=== PATIENT | male | born 1955 | race Caucasian/White ===

== ENCOUNTER 2018-03-01 15:23 | Inpatient (IN) | payer SELFPAY ==
[2018-03-01 16:44] LABS: Absolute Lymphocytes (CBC) 0.7 K/uL (0.7-4.9); Absolute Monocytes 0.6 K/uL (0.1-1.3); Basophils % 1.9 % (0-1.3); Eosinophils % 3.4 % (0-4.4); Hematocrit 14.3 % (39.6-49.0); Lymphocytes % 19.3 % (15.3-44.8); MCH 18.6 pg (27.0-35.0); MCV 64.3 fL (80-100); MPV 8.7 fL (7.6-11.3); Monocytes % 16.6 % (3.3-12.3); Protime INR 1.36; RBC Red Blood Cell Count 2.22 M/uL (4.33-5.43)
[2018-03-01 17:03] LABS: Albumin 2.5 g/dL (3.4-5.0); Bilirubin Direct 0.3 mg/dL (0-0.2); Bilirubin Total 0.8 mg/dL (0.2-1.0); Potassium 4.1 mmol/L (3.5-5.1); Protein, Total 6.2 g/dL (6.4-8.2)
--- NOTE | 2018-03-01 17:36 | RAD REPORT ---
EXAM DESCRIPTION: Dieter Single View03/01/2018 4:40 pm CLINICAL HISTORY: Shortness of breath COMPARISON: none FINDINGS: A large right pleural effusion is present. Left lung appears clear. The heart is normal si ze IMPRESSION: Large right pleural effusion
--- NOTE | 2018-03-01 17:38 | RAD REPORT ---
EXAM DESCRIPTION: CT - Chest Abdomen Pelvis W Cont - 03/01/2018 5:21 pm CLINICAL HISTORY: Chest and abdominal pain. Shortness of breath COMPARISON: none TECHNIQUE: Computed axial tomography of the chest, abdomen and pelvis was obtained. 100 cc Isovue-30 0 was administered intravenously. Oral contrast was not requested. This limits evaluation of bowel. All CT scans are performed using dose optimization technique as appropriate and may include automated exposure control or mA/KV adjustment according to patient size. FINDINGS: A large right pleural effusion is present with right basilar atelectasis. The left lung is clear. A pericardial effusion is not present. A cirrhotic liver is seen. A small hepatic cyst is present. The portal vein is patent. Recannulizatio n of the umbilical vein is present. Varices are present The spleen is mildly to moderately enlarged measuring 15 centimeters Several tiny left renal calculi are present without hydronephrosis. The right kidney is unremarkable . The pancreas appears normal. A 30 millimeter left adrenal mass is present. A large right inguinal hernia contains nondilated bowel and ascites. A small left inguinal hernia con tains fat. There is no evidence of diverticulitis. Small amount of ascites is present. An umbilical hernia has a neck 27 millimeter Spondylolysis involves L5 IMPRESSION: Large right pleural effusion Cirrhosis Large right inguinal hernia containing a nondilated bowel and ascites 30 millimeter left adrenal mass
[2018-03-01 17:50] LABS: Anisocytosis 1+; Blood Morphology Comment NOTED (NOT SEEN); Hypochromasia 2+; Ovalocytes 1+; Platelet Estimate ADEQ; Polychromasia 1+; Urine White Blood Cell Casts OK
[2018-03-01 17:51] LABS: Rouleau SLIGHT
[2018-03-01] MEDS ORDERED: ONDANSETRON 4 MG/2 ML VIAL IV PRN (17:56)
[2018-03-01] MEDS ORDERED: SODIUM CHLORIDE 0.9% 10ML INJ IV PRN (18:04)
--- NOTE | 2018-03-01 18:14 | P.HP ---
Certification for Inpatient Patient admitted to: Inpatient With expected LOS: >2 Midnights Patient will require the following post-hospital care: None Practitioner: I am a practitioner with admitting privileges, knowledge of patient current condition, hospital course, and medical plan of care. Services: Services provided to patient in accordance with Admission requirements found in Title 42 Section 412.3 of the Code of Federal Regulations Patient History Date of Service: 03/01/18 Primary Care Provider: None Reason for admission: Shortness of breath, edema to the lower extremities History of Present Illness: 62-year-old male presented emergency room with shortness of breath and edema to the lower extremities. Symptoms have been present for over 1 month. Shortness of breath has been getting worse over the last 2 weeks. Patient denies any melena, rectal bleeding, nausea or vomiting. He has been reporting a mild cough. Patient reports some heartburn. He usually is relieved on occasion. In the ER the patient had anasarca. Edema to the lower extremities was impressive. On lab he was found to have a hemoglobin of 4.1, white count 3.5, sodium 134 come potassium 4.1. Creatinine 1.2 with a GFR 61. Direct bilirubin 0.3. AST 58, ALT 60. BNP 128, troponin less than 0.02. Chest x-ray showed a large right pleural effusion per on CT, it showed a large right pleural effusion. Large right-sided inguinal hernia was also noted. Cirrhosis of the liver was noted. A 30 mm left adrenal mass was present. Due to nature the findings the patient was admitted for further evaluation. When I saw the patient ER, he appeared pale. He did not appear in any respiratory distress on a nasal cannula. Patient denies any significant history of past medical problems. 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 It is been many many years since he has use any drugs. He does not smoke, he does not drink. No family history of medical problems. Home medications list reviewed: Yes - Past Medical/Surgical History Diabetic: No Past Medical History: Patient denies medical history Past Surgical History: Patient denies surgical history Psychosocial/ Personal History: Patient is . 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 - Family History Family History: Reviewed- Non-Contributory - Social History Smoking Status: Never smoker Alcohol use: No CD- Drugs: No Caffeine use: Yes Place of Residence: Home Review of Systems General: Weakness, As per HPI Eyes: Unremarkable ENT: Unremarkable Respiratory: Shortness of Breath, As per HPI Cardiovascular: Edema, As per HPI Gastrointestinal: As per HPI (Large hernia) Genitourinary: Unremarkable Musculoskeletal: Pedal edema, As per HPI Integumentary: Unremarkable Neurological: Unremarkable Lymphatics: Unremarkable Physical Examination - Physical Exam General: Alert, In no apparent distress, Oriented x3, Cooperative HEENT: Atraumatic, Mucous membr. moist/pink (Dry mucous membranes), Other ( Patient appears pale) Neck: Supple, No Thyromegaly Respiratory: Diminished (To the right side) Cardiovascular: Regular rate/rhythm, Gallops Gastrointestinal: Normal bowel sounds, Soft and benign, Non-distended, No tenderness, No masses, No rebound, Other (Large right inguinal hernia. Umbilical hernia noted.), Ascites Musculoskeletal: No tenderness, No warmth Integumentary: No erythema, No warmth, No cyanosis, Tenderness/swelling (2+ pitting edema to the lower extremities bilateral) Neurological: Normal speech, Normal strength at 5/5 x4 extr, Normal tone, Normal affect Lymphatics: No axilla or inguinal lymphadenopathy - Studies Laboratory Data (last 24 hrs) 03/01/18 16:10: PT 16.1 H, INR 1.36 03/01/18 16:10: WBC 3.5 L, Hgb 4.1 L*, Hct 14.3 L*, Plt Count 179 03/01/18 16:10: Sodium 134 L, Potassium 4.1, BUN 16, Creatinine 1.20, Glucose 112 H, Magnesium 2.0, Total Bilirubin 0.8, AST 58 H, ALT 60, Alkaline Phosphatase 94 Assessment and Plan - Problems (Diagnosis) (1) Anemia Current Visit: Yes Status: Acute Plan: Patient with severe anemia. Will recheck hemoglobin. If still abnormal will transfuse 2 units of blood and monitor closely. Patient will need Lasix. Will check iron and B12 studies. Will check guaiac stool. GI consulted to further evaluate. Will place on Protonix. Qualifiers: Anemia type: other cause (2) Cirrhosis Current Visit: Yes Status: Acute Plan: This appears to be a new diagnosis for the patient. Will send for hepatitis panel and HIV. Will start Lasix IV. Will monitor closely. GI consulted. Await further recommendations. Qualifiers: Hepatic cirrhosis type: unspecified hepatic cirrhosis Ascites presence: with ascites Qualified Code(s): K74.60 - Unspecified cirrhosis of liver; R18.8 - Other ascites (3) Shortness of breath Current Visit: Yes Status: Acute Plan: Patient with large right-sided pleural effusion. This is likely related to underlying CHF. Patient with cirrhosis. Will continue with diuresis. Will check echocardiogram. Cardiology consulted. (4) Pleural effusion Current Visit: Yes Status: Acute Plan: Will check echocardiogram. This may be related to his cirrhosis and possible underlying CHF. Spoke with pulmonology. No intervention is recommended at this time. (5) CHF (congestive heart failure) Current Visit: Yes Status: Suspected Plan: Will check echocardiogram. Will continue with diuresis. Qualifiers: Heart failure type: systolic Heart failure chronicity: acute on chronic Qualified Code(s): I50.23 - Acute on chronic systolic (congestive) heart failure (6) Adrenal mass Current Visit: Yes Status: Acute Plan: Left 30 mm adrenal mass. This will need to be further assess. Will discuss with GI. (7) Inguinal hernia Current Visit: Yes Status: Chronic Plan: Large right-sided inguinal hernia. No heavy lifting, pushing or pulling. This can be addressed by surgery as an outpatient. Qualifiers: Obstruction and gangrene presence: without obstruction or gangrene Laterality: unilateral (8) Ascites Current Visit: Yes Status: Acute Plan: Likely from his cirrhosis. Will need to evaluate for CHF. Qualifiers: Ascites type: other type Qualified Code(s): R18.8 - Other ascites Discharge Plan: Home Plan to discharge in: Greater than 2 days - Advance Directives Does patient have a Living Will: No Does patient have a Durable POA for Healthcare: No - Code Status/Comfort Care Code Status Assessed: Yes Time Spent Managing Pts Care (In Minutes): 55
--- NOTE | 2018-03-01 18:17 | EDPHYS ---
Physician Documentation [facility] Name: Rich Montana Age: 62 yrs Sex: Male : 1955 Arrival Date: 03/01/2018 Time: 15:28 Bed 5 Private MD: Eusebio Kimble ED Physician Jose Rob HPI: 03/01 16:52 This 62 yrs old Male presents to ER via Ambulatory with complaints of Leg gs Swelling, Shortness Of Breath, Cough. 16:52 The patient has shortness of breath at rest, during heavy activity. gs 18:18 Onset: The symptoms/episode began/occurred 2 week(s) ago. Duration: The symptoms are gs continuous. The patient's shortness of breath is aggravated by exertion, supine position. Associated signs and symptoms: Pertinent negatives: chest pain, swelling extremities. Severity of symptoms: At their worst the symptoms were moderate. The patient has not experienced similar symptoms in the past. The patient has not recently seen a physician. Historical: - Allergies: 15:33 acromycin; aj - Home Meds: 15:33 None [Active]; aj - PMHx: 15:33 None; aj - PSHx: 15:33 None; aj - Immunization history:: Adult Immunizations up to date. - Social history:: Smoking status: Patient/guardian denies using tobacco. - Ebola Screening: : Patient negative for fever greater than or equal to 101.5 degrees Fahrenheit, and additional compatible Ebola Virus Disease symptoms Patient denies exposure to infectious person Patient denies travel to an Ebola-affected area in the 21 days before illness onset No symptoms or risks identified at this time. ROS: 18:18 All other systems are negative. gs Exam: 18:18 Head/Face: Normocephalic, atraumatic. Eyes: Pupils equal round and reactive to light, gs extra-ocular motions intact. Lids and lashes normal. Conjunctiva and sclera are non-icteric and not injected. Cornea within normal limits. Periorbital areas with no swelling, redness, or edema. ENT: Nares patent. No nasal discharge, no septal abnormalities noted. Tympanic membranes are normal and external auditory canals are clear. Oropharynx with no redness, swelling, or masses, exudates, or evidence of obstruction, uvula midline. Mucous membranes moist. Neck: Trachea midline, no thyromegaly or masses palpated, and no cervical lymphadenopathy. Supple, full range of motion without nuchal rigidity, or vertebral point tenderness. No Meningismus. Chest/axilla: Normal chest wall appearance and motion. Nontender with no deformity. No lesions are appreciated. Cardiovascular: Regular rate and rhythm with a normal S1 and S2. No gallops, murmurs, or rubs. Normal PMI, no JVD. No pulse deficits. Back: No spinal tenderness. No costovertebral tenderness. Full range of motion. Skin: Warm, dry with normal turgor. Normal color with no rashes, no lesions, and no evidence of cellulitis. Neuro: Awake and alert, GCS 15, oriented to person, place, time, and situation. Cranial nerves II-XII grossly intact. Motor strength 5/5 in all extremities. Sensory grossly intact. Cerebellar exam normal. Normal gait. 18:18 Constitutional: The patient appears alert, awake, pale. 18:18 Respiratory: the patient does not display signs of respiratory distress, Respirations: normal, Breath sounds: decreased breath sounds, that are severe, are heard in the right posterior upper lobe, right posterior middle lobe and right posterior lower lobe. 18:18 Abdomen/GI: Palpation: abdomen is soft and non-tender. 18:18 Musculoskeletal/extremity: ROM: no acute changes, Circulation is intact in all extremities. Edema, 3+ to the left lower thigh, left knee, left midcalf, left ankle, right lower thigh, right knee, right midcalf and right ankle is noted, Sensation intact. 18:35 ECG was reviewed by the Attending Physician. Vital Signs: 15:33 BP 142 / 64; Pulse 116; Resp 24; Temp 99.6; Pulse Ox 98% on R/A; Weight 78.47 kg; aj Height 5 ft. 8 in. (172.72 cm); 15:55 BP 129 / 63; Pulse 96; Resp 20; Pulse Ox 99% ; jp3 18:00 BP 125 / 68; Pulse 87 MON; Resp 19; Temp 99.6; Pulse Ox 98% on R/A; sg 19:00 BP 121 / 67; Pulse 99; Resp 16; Pulse Ox 99% on R/A; rv 19:30 BP 127 / 71; Pulse 96; Resp 16; Pulse Ox 99% on R/A; rv 20:40 BP 120 / 64; Pulse 92; Resp 28; Pulse Ox 97% on R/A; rv 21:11 BP 125 / 73; Pulse 92; Resp 20; Pulse Ox 97% on R/A; mt 15:33 Body Mass Index 26.30 (78.47 kg, 172.72 cm) aj 18:00 Sinus Rhythm sg MDM: 16:21 Patient medically screened. 18:18 Differential diagnosis: Myocardial Infarction pneumonia, pleural effusion, malignancy, gs anemia. Data reviewed: vital signs, nurses notes. 03/01 16:27 Order name: Basic Metabolic Panel; Complete Time: 17:41 03/01 16:27 Order name: CBC with Diff; Complete Time: 18:16 03/01 16:27 Order name: LFT's; Complete Time: 17:41 03/01 16:27 Order name: Magnesium; Complete Time: 17:41 03/01 16:27 Order name: NT PRO-BNP; Complete Time: 17:41 03/01 16:27 Order name: PT-INR; Complete Time: 17:41 03/01 16:27 Order name: Troponin (emerg Dept Use Only); Complete Time: 17:41 03/01 16:48 Order name: Type And Screen 03/01 17:50 Order name: CBC Smear Scan; Complete Time: 18:16 [facility] 03/01 17:52 Order name: Hemoglobin 03/01 17:54 Order name: Bb Add On bd 03/01 17:58 Order name: Packed RBC Leukored -1 [facility] 03/01 18:03 Order name: Vitamin B12 Level [facility] 03/01 18:03 Order name: Ferritin [facility] 03/01 18:04 Order name: Comprehensive Metabolic Panel [facility] 03/01 18:04 Order name: Comprehensive Metabolic Panel [facility] 03/01 18:04 Order name: Comprehensive Metabolic Panel [facility] 03/01 18:04 Order name: Comprehensive Metabolic Panel [facility] 03/01 18:04 Order name: Comprehensive Metabolic Panel [facility] 03/01 18:04 Order name: Comprehensive Metabolic Panel [facility] 03/01 18:04 Order name: Lipid Profile [facility] 03/01 18:04 Order name: Lipid Profile [facility] 03/01 18:04 Order name: Magnesium [facility] 03/01 18:04 Order name: Magnesium [facility] 03/01 18:04 Order name: Magnesium [facility] 03/01 18:04 Order name: Magnesium [facility] 03/01 18:04 Order name: Magnesium [facility] 03/01 18:04 Order name: Magnesium [facility] 03/01 18:04 Order name: T4 Free [facility] 03/01 16:27 Order name: XRAY Chest (1 view); Complete Time: 17:41 gs 03/01 16:27 Order name: EKG; Complete Time: 16:28 03/01 16:27 Order name: Cardiac monitoring; Complete Time: 16:30 03/01 16:27 Order name: EKG - Nurse/Tech; Complete Time: 16:30 03/01 16:27 Order name: IV Saline Lock; Complete Time: 16:30 03/01 16:27 Order name: Labs collected and sent; Complete Time: 16:30 03/01 16:27 Order name: O2 Per Protocol; Complete Time: 16:30 03/01 16:27 Order name: O2 Sat Monitoring; Complete Time: 16:30 03/01 16:55 Order name: CT Chest, Abdomen, Pelvis - W/Contrast; Complete Time: 17:42 03/01 18:04 Order name: T4 Free [facility] 03/01 18:04 Order name: CONS Physician Consult [facility] 03/01 18:04 Order name: CONS Physician Consult [facility] 03/01 18:04 Order name: Heart Healthy [facility] 03/01 18:04 Order name: Echo with Doppler [facility] 03/01 18:04 Order name: Hepatitis Panel,Acute [facility] 03/01 18:04 Order name: Transferrin Sat/Iron Binding [facility] 03/01 18:04 Order name: HIV AG/AB SCREEN [facility] 03/01 18:04 Order name: Urinalysis [facility] 03/01 18:04 Order name: CBC with Automated Diff [facility] 03/01 18:04 Order name: CBC with Automated Diff [facility] 03/01 18:04 Order name: CBC with Automated Diff [facility] 03/01 18:04 Order name: CBC with Automated Diff [facility] 03/01 18:04 Order name: CBC with Automated Diff [facility] 03/01 18:04 Order name: CBC with Automated Diff [facility] 03/01 18:04 Order name: Thyroid Stimulating Hormone [facility] 03/01 18:04 Order name: Thyroid Stimulating Hormone [facility] 03/01 18:49 Order name: ABO/RH no charge; Complete Time: 20:16 [facility] 03/01 19:37 Order name: Antibody Screen [facility] 03/01 21:55 Order name: Urine Dipstick--Ancillary (enter results) eb EC:35 Rate is 103 beats/min. Rhythm is regular. ME interval is normal. QRS interval is gs normal. QT interval is normal. T waves are Flattened. Clinical impression: NSR w/ Non-specific ST/T Changes. Interpreted by me. Administered Medications: No medications were administered Point of Care Testing: Blood Glucose: 15:55 Blood Glucose: 140 mg/dL; jp3 Ranges: Critical Glucose Levels:Adult <50 mg/dl or >400 mg/dl <40 mg/dl or >180 mg/dl Disposition: 18:18 Critical Care:. gs Disposition: 03/01/18 18:16 Hospitalization ordered by Omar Kern for Inpatient Admission. Preliminary diagnosis is Anemia in chronic diseases classified elsewhere. - Bed requested for Telemetry/MedSurg (Inpatient). - Status is Inpatient Admission. rv - Condition is Stable. - Problem is new. - Symptoms are unchanged. UTI on Admission? No Critical care time excluding procedures: 18:18 Critical care time: Bedside Care: 10 minutes, Consultation: 10 minutes, Family gs Intervention: 10 minutes. Total time: 30 minutes Signatures: Dispatcher [employer] Dora Martinez, Jose Bansal RN, MD MD gs Botello, Elizabeth eb Vicente, Ronaldo, RN RN rv Corrections: (The following items were deleted from the chart) 16:59 16:45 Stone Protocol+CT.RAD.BRZ ordered. [facility] EDFL 18:04 18:03 Iron ordered. [facility] 19:20 18:16 Hospitalization Ordered by Omar Kern DO for Inpatient Admission. Preliminary eb diagnosis is Anemia in chronic diseases classified elsewhere. Bed requested for Telemetry/MedSurg (Inpatient). Status is Inpatient Admission. Condition is Stable. Problem is new. Symptoms are unchanged. UTI on Admission? No. gs 22:17 19:20 03/01/2018 18:16 Hospitalization Ordered by Omar Kern DO for Inpatient rv Admission. Preliminary diagnosis is Anemia in chronic diseases classified elsewhere. Bed requested for Telemetry/MedSurg (Inpatient). Status is Inpatient Admission. Condition is Stable. Problem is new. Symptoms are unchanged. UTI on Admission? No. eb
--- NOTE | 2018-03-01 18:17 | ER ---
Nurse's Notes [facility] Name: Rich Montana Age: 62 yrs Sex: Male : 1955 Arrival Date: 03/01/2018 Time: 15:28 Bed 5 Private MD: Eusebio Kimble Diagnosis: Anemia in chronic diseases classified elsewhere Presentation: 03/01 15:31 Presenting complaint: Patient states: SOB with bilateral leg swelling for 1.5 weeks. aj Transition of care: patient was not received from another setting of care. Onset of symptoms was February 19, 2018. Risk Assessment: Do you want to hurt yourself or someone else? Patient reports no desire to harm self or others. Initial Sepsis Screen: Does the patient meet any 2 criteria? HR > 90 bpm. No. Patient's initial sepsis screen is negative. Does the patient have a suspected source of infection? No. Patient's initial sepsis screen is negative. Care prior to arrival: None. 15:31 Method Of Arrival: Ambulatory aj 15:31 Acuity: SIGIFREDO 3 aj Triage Assessment: 15:33 General: Appears in no apparent distress. comfortable, Behavior is calm, cooperative, aj appropriate for age. Pain: Denies pain. Neuro: Level of Consciousness is awake, alert, obeys commands, Oriented to person, place, time, situation, Appropriate for age. Cardiovascular: Patient's skin is warm and dry. Edema is 3+ to left midcalf, left ankle, left foot, right midcalf, right ankle and right foot. Respiratory: Reports cough that is Airway is patent Respiratory effort is even, unlabored, Respiratory pattern is regular, symmetrical, Onset: The symptoms/episode began/occurred gradually, the patient has mild shortness of breath. Derm: Skin Skin is pale. Historical: - Allergies: 15:33 acromycin; aj - Home Meds: 15:33 None [Active]; aj - PMHx: 15:33 None; aj - PSHx: 15:33 None; aj - Immunization history:: Adult Immunizations up to date. - Social history:: Smoking status: Patient/guardian denies using tobacco. - Ebola Screening: : Patient negative for fever greater than or equal to 101.5 degrees Fahrenheit, and additional compatible Ebola Virus Disease symptoms Patient denies exposure to infectious person Patient denies travel to an Ebola-affected area in the 21 days before illness onset No symptoms or risks identified at this time. Screenin:00 Abuse screen: Denies threats or abuse. Denies injuries from another. Nutritional sg screening: No deficits noted. Tuberculosis screening: No symptoms or risk factors identified. Never had TB. Fall Risk None identified. Assessment: 16:00 General: Appears in no apparent distress. comfortable, well groomed, well developed, sg well nourished, Behavior is calm, cooperative, appropriate for age. Pain: Denies pain. Neuro: Level of Consciousness is awake, alert, obeys commands, Oriented to person, place, time, situation, Supervisory Cbp Officer are equal bilaterally Moves all extremities. Full function Gait is steady, Speech is normal, Facial symmetry appears normal. Cardiovascular: Reports shortness of breath, Denies chest pain, diaphoresis, fatigue, lightheadedness, nausea, palpitations, syncope, vomiting, Heart tones S1 S2 present Capillary refill is brisk in bilateral fingers Patient's skin is warm and dry. Edema is 3+ to left ankle, left foot, left toes, right ankle, right foot and right toes Chest pain is denied. Respiratory: Reports shortness of breath at rest Airway is patent Respiratory effort is even, unlabored, Respiratory pattern is regular, symmetrical, Breath sounds are clear bilaterally. GI: No signs and/or symptoms were reported involving the gastrointestinal system. : No signs and/or symptoms were reported regarding the genitourinary system. EENT: No signs and/or symptoms were reported regarding the EENT system. Derm: Skin is intact, is healthy with good turgor, Skin is dry, Skin is pale, Skin temperature is cool. Musculoskeletal: No signs and/or symptoms reported regarding the musculoskeletal system. 19:22 Reassessment: Patient appears in no apparent distress at this time. Patient is alert, rv oriented x 3, equal unlabored respirations, skin warm/dry/pink. received patient from Seth DUNN. patient is lying on bed. noted to be pale. no complaints of pain. conscious and coherent. blood not yet processed as of this moment. 19:28 Reassessment: consent for blood transfusion signed by the patient. consent attached to rv chart. 20:40 Reassessment: Patient appears in no apparent distress at this time. Patient is alert, rv oriented x 3, equal unlabored respirations, skin warm/dry/pink. awaiting blood unit for transfusion. 20:50 Reassessment: Patient appears in no apparent distress at this time. Patient is alert, rv oriented x 3, equal unlabored respirations, skin warm/dry/pink. blood transfusion started. 21:51 Reassessment: Patient appears in no apparent distress at this time. Patient is alert, rv oriented x 3, equal unlabored respirations, skin warm/dry/pink. patient on the way to the floor. blood interrupted, 175ml left on the bag. 22:14 Cardiovascular: Rhythm is regular. rv Vital Signs: 15:33 BP 142 / 64; Pulse 116; Resp 24; Temp 99.6; Pulse Ox 98% on R/A; Weight 78.47 kg; aj Height 5 ft. 8 in. (172.72 cm); 15:55 BP 129 / 63; Pulse 96; Resp 20; Pulse Ox 99% ; jp3 18:00 BP 125 / 68; Pulse 87 MON; Resp 19; Temp 99.6; Pulse Ox 98% on R/A; sg 19:00 BP 121 / 67; Pulse 99; Resp 16; Pulse Ox 99% on R/A; rv 19:30 BP 127 / 71; Pulse 96; Resp 16; Pulse Ox 99% on R/A; rv 20:40 BP 120 / 64; Pulse 92; Resp 28; Pulse Ox 97% on R/A; rv 21:11 BP 125 / 73; Pulse 92; Resp 20; Pulse Ox 97% on R/A; mt 15:33 Body Mass Index 26.30 (78.47 kg, 172.72 cm) aj 18:00 Sinus Rhythm ED Course: 15:28 Patient arrived in ED. sb2 15:29 Eusebio Kimble MD is Private Physician. sb2 15:33 Triage completed. aj 15:33 Arm band placed on left wrist. Patient placed in an exam room. aj 15:38 Jose Rob MD is Attending Physician. gs 15:45 Inserted saline lock: 22 gauge in right antecubital area, using aseptic technique. jp3 Blood collected. 15:49 Seth Michele, SHAUN is Primary Nurse. sg 16:04 EKG done, by technical project lead. reviewed by Jose Rob MD. sm3 16:36 X-ray completed. Portable x-ray completed in exam room. Patient tolerated procedure kc2 well. 16:39 XRAY Chest (1 view) In Process Unspecified. EDMS 17:[address] vm2 17:21 CT Chest, Abdomen, Pelvis - W/Contrast In Process Unspecified. EDMS 18:16 Omar Kern DO is Hospitalizing Provider. 19:12 Primary Nurse role handed off by Seth Michele, RN bp 19:12 Ricco Waters, RN is Primary Nurse. bp 22:13 No provider procedures requiring assistance completed. Patient admitted, IV remains in rv place. intact. 22:15 Patient has correct armband on for positive identification. Placed in gown. Bed in low rv position. Call light in reach. Side rails up X 1. Adult w/ patient. counter server on. Pulse ox on. NIBP on. Administered Medications: No medications were administered Point of Care Testing: Blood Glucose: 15:55 Blood Glucose: 140 mg/dL; jp3 Ranges: Outcome: 18:16 Decision to Hospitalize by Provider. gs 22:14 Admitted to Med/surg accompanied by nurse, via stretcher, room 205, with chart, Report rv called to [facility] 22:15 Condition: stable rv 22:15 Instructed on the need for admit. 22:17 Patient left the ED. rv Signatures: Dispatcher [employer] EDMS Seth Michele, RN SHAUN Dora Reeves RN RN Jackie Meyers 2 Aleshia Mathur 2 Krystal Krishnamurthy mt, Gregory, MD MD Ricco Waters, RN RN bp Ame Calderón 2 Natasha Oviedo 3 Andres Linton RN RN rv Ramana Salinas jp3 Corrections: (The following items were deleted from the chart) 19:56 19:00 BP 127 / 71; Pulse 96bpm; Resp 16bpm; Pulse Ox 99% RA; rv rv
[2018-03-01] MEDS ORDERED: NA CHLORIDE 0.9% 100 ML IV ONE (19:53)
[2018-03-01 20:28] LABS: Ferritin 7.8 ng/mL (26-388); Transferrin 326 mg/dL (200-360)
--- NOTE | 2018-03-01 20:53 | EKG ---
Test Date: 2018-03-01 Test Time: 15:46:26 Shuttle Driver: RHETT MEASUREMENT RESULTS: Intervals: Rate: 103 DE: 124 QRSD: 78 QT: 334 QTc: 437 Union: P: 66 DE: 124 QRS: 33 T: 1 INTERPRETIVE STATEMENTS: Sinus tachycardia Otherwise normal ECG No previous ECG available for comparison Electronically Signed On 03-01-18 20:52:50 CDT by Joe Smith
[2018-03-01 22:46] VITALS: BMI 27.9
[2018-03-02] MEDS ORDERED: NA CHLORIDE 0.9% 250 ML ONE ×3 (03:13→21:59)
[2018-03-02 06:01] LABS: Absolute Lymphocytes (CBC) 0.6 K/uL (0.7-4.9); Absolute Monocytes 0.6 K/uL (0.1-1.3); Absolute Neutrophil 1.7 K/uL (1.8-8.0); Basophils % 1.6 % (0-1.3); Eosinophils % 6.9 % (0-4.4); Lymphocytes % 20.5 % (15.3-44.8); MCH 21.7 pg (27.0-35.0); MCV 70.6 fL (80-100); MPV 8.3 fL (7.6-11.3); Monocytes % 17.9 % (3.3-12.3); RBC Red Blood Cell Count 2.45 M/uL (4.33-5.43)
[2018-03-02 06:08] LABS: Hematocrit 17.3 % (39.6-49.0)
[2018-03-02 06:42] LABS: Anisocytosis 3+; Blood Morphology Comment NOTED (NOT SEEN); Hypochromasia 1+; Platelet Estimate DECR; Urine White Blood Cell Casts OK
[2018-03-02 07:30] LABS: Albumin 2.4 g/dL (3.4-5.0); Bilirubin Total 1.3 mg/dL (0.2-1.0); Magnesium 1.9 mg/dL (1.8-2.4); Potassium 4.3 mmol/L (3.5-5.1); Protein, Total 5.7 g/dL (6.4-8.2); Thyroid Stimulating Hormone 0.7 uIU/mL (0.36-3.74)
[2018-03-02] MEDS: PANTOPRAZOLE 40 MG INJ IVP SCH (09:42)
[2018-03-02] MEDS: SPIRONOLACTONE 25 MG TABLET PO SCH (09:42)
[2018-03-02] MEDS: FUROSEMIDE 40 MG/4 ML VIAL IV SCH ×2 (09:42→17:58)
[2018-03-02] MEDS ORDERED: FUROSEMIDE 20 MG/ 2ML VIAL IV ONE (09:47)
--- NOTE | 2018-03-02 10:59 | CON ---
Date of Consultation: 03/02/[address] Kern' service on 03/01/2018. The patient was seen on 03/02/2018. Reason For Consultation: Shortness of breath and anasarca. History Of Present Illness: Mr. Montana is a 62-year-old white male without any past medical history. He does not take any medications. He came in with 1-month worth of shortness of breath, was found to have a hemoglobin of 4.1. Chest x-ray showed a large pleural effusion. CT of the abdomen showed a large pleural effusion, a 30-mm adrenal mass, ascites, and cirrhosis. No chest pain reported. No pa lpitation. No syncope. Pedal edema and abdominal girth increase were reported. Allergies: INCLUDE VANCOMYCIN. Review of Systems: Negative. Social History: Negative. Family History: Noncontributory. Medications: None. Physical Examination: Vital Signs: Stable. Afebrile. HEENT: Negative. Neck: Supple without any lymphadenopathy, JVD, thyromegaly, or bruit. Chest: Revealed decreased breath sounds bilaterally. Cardiac: Revealed a regular rhythm and rate. No murmurs, gallops, or rubs. Abdomen: Obese. Extremities: Revealed no clubbing, cyanosis. He had 2 to 3+ edema with anasarca. Diagnostic Data: As stated above. Impression And Plan: Mr. Miguels shortness of breath is obviously secondary to multiple factors inclu ding severe anemia, pleural effusion, anasarca, and diffuse edema. I doubt very seriously we are charlotte ling with congestive heart failure. I think this may be a problem related to his liver. He adrenal mass needs to be worked up. He has an echocardiogram pending. He needs Gastroenterology workup exte nsively. We will see what the echocardiogram shows prior to making final decision. He needs to be t ransfused and gentle diuresis may be indicated. We will follow along. ESAU/MICKY Voice ID: [id number] Report ID: [id number]
--- NOTE | 2018-03-02 12:48 | P.PN ---
Subjective Date of Service: 03/02/18 Primary Care Provider: None Chief Complaint: Shortness of breath, edema to the lower extremities Subjective: Doing well (Patient feels slightly better.) Physical Examination - Vital Signs Temperature: 98.7 F Blood Pressure: 126/63 Pulse: 90 Respirations: 18 Pulse Ox (%): 93 - Physical Exam General: Alert, In no apparent distress, Oriented x3, Cooperative HEENT: Atraumatic Neck: Supple Respiratory: Diminished (To the right side) Cardiovascular: Normal pulses, Regular rate/rhythm Gastrointestinal: Normal bowel sounds, Soft and benign, Non-distended, No tenderness, No masses, No rebound, Ascites Musculoskeletal: No erythema, No tenderness, No warmth Integumentary: Tenderness/swelling (Edema to the lower extremities unchanged. Patient last pale today.) Neurological: Normal speech, Normal strength at 5/5 x4 extr, Normal tone, Normal affect - Studies Laboratory Data (last 24 hrs) 03/01/18 17:52: Hgb Cancelled 03/01/18 16:10: PT 16.1 H, INR 1.36 03/01/18 16:10: WBC 3.5 L, Hgb 4.1 L*, Hct 14.3 L*, Plt Count 179 03/01/18 16:10: Sodium 134 L, Potassium 4.1, BUN 16, Creatinine 1.20, Glucose 112 H, Magnesium 2.0, Total Bilirubin 0.8, AST 58 H, ALT 60, Alkaline Phosphatase 94 Medications List Reviewed: Yes Assessment & Plan - Problems (Diagnosis) (1) Anemia Onset Date: 03/02/18 Current Visit: Yes Status: Acute Plan: Patient with severe anemia. Patient has received 2 units of blood. Slight improvement noted. Will transfuse 2 more units. Will provide Lasix after each unit. Iron deficiency noted. Will check guaiac stool. GI consulted. Will continue with PPI. Patient may require EGD evaluation. Qualifiers: Anemia type: other cause (2) Cirrhosis Onset Date: 03/02/18 Current Visit: Yes Status: Acute Plan: This appears to be a new diagnosis for the patient. Await hepatitis panel and HIV. Will continue with diuresis. GI consulted. Will discuss with GI further for further recommendation. Patient will likely need biopsy of the liver Qualifiers: Hepatic cirrhosis type: unspecified hepatic cirrhosis Ascites presence: with ascites Qualified Code(s): K74.60 - Unspecified cirrhosis of liver; R18.8 - Other ascites (3) Shortness of breath Onset Date: 03/02/18 Current Visit: Yes Status: Acute Plan: Patient with large right-sided pleural effusion. Likely related to cirrhosis. Will continue with diuresis. Will check echocardiogram. Will recheck x-ray. Case discussed with pulmonology. No intervention needed at this time. (4) Pleural effusion Onset Date: 03/02/18 Current Visit: Yes Status: Acute Plan: Continue monitor closely. Continue as above. No intervention recommended by pulmonology at this time. (5) CHF (congestive heart failure) Onset Date: 03/02/18 Current Visit: Yes Status: Suspected Plan: Will check echocardiogram. Will continue with diuresis. Cardiology consulted. Qualifiers: Heart failure type: systolic Heart failure chronicity: acute on chronic Qualified Code(s): I50.23 - Acute on chronic systolic (congestive) heart failure (6) Adrenal mass Onset Date: 03/02/18 Current Visit: Yes Status: Acute Plan: Left 30 mm adrenal mass. This will likely need biopsy. Will discuss with radiology for possible options. (7) Inguinal hernia Onset Date: 03/02/18 Current Visit: Yes Status: Chronic Plan: Large right-sided inguinal hernia. No heavy lifting, pushing or pulling. This can be addressed by surgery as an outpatient. Qualifiers: Obstruction and gangrene presence: without obstruction or gangrene Laterality: unilateral (8) Ascites Onset Date: 03/02/18 Current Visit: Yes Status: Acute Plan: Likely from his cirrhosis. Will need to evaluate for CHF. Qualifiers: Ascites type: other type Qualified Code(s): R18.8 - Other ascites Discharge Plan: Home Plan to discharge in: Greater than 2 days Time Spent Managing Pts Care (In Minutes): 55
[2018-03-02] MEDS: ACETAMINOPHEN 500 MG TAB PO PRN ×2 (13:39→15:03)
--- NOTE | 2018-03-02 15:56 | ECHO ---
HEIGHT: 5 ft 8 in WEIGHT: 183 lb 11.2 oz DATE OF STUDY: 03/02/[address]: Omar Kern DO 2-DIMENSIONAL: YES M.MODE: YES DOPPLER: YES COLOR FLOW: YES TDS: NO PORTABLE: NO DEFINITY: NO BUBBLE STUDY: NO DIAGNOSIS: DYSPNEA, EVALUATE FOR CONGESTIVE HEART FAILURE CARDIAC HISTORY: CATHERIZATION: NO SURGERY: NO PROSTHETIC VALVE: NO PACEMAKER: NO MEASUREMENTS (cm) DIASTOLIC (NORMALS) SYSTOLIC (NORMALS) IVSd 1.1 (0.6-1.2) LA Diam 4.4 (1.9-4.0) LVEF 81% LVIDd 3.4 (3.5-5.7) LVIDs 1.7 (2.0-3.5) %FS 49% LVPWd 0.9 (0.6-1.2) Ao Diam 2.9 (2.0-3.7) 2 DIMENSIONAL ASSESSMENT: RIGHT ATRIUM: NORMAL LEFT ATRIUM: DILATED RIGHT VENTRICLE: NORMAL LEFT VENTRICLE: NORMAL TRICUSPID VALVE: NORMAL MITRAL VALVE: NORMAL PULMONIC VALVE: NORMAL AORTIC VALVE: NORMAL PERICARDIAL EFFUSION: NONE AORTIC ROOT: NORMAL LEFT VENTRICULAR WALL MOTION: NORMAL DOPPLER/COLOR FLOW: MILD MITRAL REGURGITATION. COMMENTS: MILD MITRAL REGURGITATION. NORMAL LEFT VENTRICULAR SIZE AND FUNCTION. NO WALL MOTION ABNORMALITY. MILD LEFT ATRIAL ENLARGEMENT. TECHNOLOGIST: Reza FIELDS
[2018-03-02] MEDS: BENZONATATE 100 MG CAP PO PRN (18:10)
[2018-03-02] MEDS: ENOXAPARIN 40 MG/0.4 ML SQ SCH (23:16)
[2018-03-03] LABS: Urine Appearance CLEAR; Urine Bilirubin NEGATIVE (NEG); Urine Blood NEGATIVE (NEG); Urine Color YELLOW; Urine Glucose NEGATIVE (NEG); Urine Protein NEGATIVE (NEG)
[2018-03-03 00:08] LABS: Urine Microscopic Reflex NO UMIC
[2018-03-03 04:43] LABS: Absolute Lymphocytes (CBC) 0.6 K/uL (0.7-4.9); Absolute Monocytes 0.6 K/uL (0.1-1.3); Absolute Neutrophil 1.5 K/uL (1.8-8.0); Basophils % 1.1 % (0-1.3); Eosinophils % 6.9 % (0-4.4); Hematocrit 21.3 % (39.6-49.0); Lymphocytes % 21.5 % (15.3-44.8); MCV 74.9 fL (80-100); MPV 8.7 fL (7.6-11.3); RBC Red Blood Cell Count 2.84 M/uL (4.33-5.43)
[2018-03-03 05:07] LABS: Albumin 2.3 g/dL (3.4-5.0); Bilirubin Total 1.1 mg/dL (0.2-1.0); Potassium 4.1 mmol/L (3.5-5.1); Protein, Total 5.7 g/dL (6.4-8.2)
--- NOTE | 2018-03-03 08:34 | RAD REPORT ---
EXAM DESCRIPTION: RADChest Lateral Decubitus03/03/2018 8:11 am CLINICAL HISTORY: Shortness of breath FINDINGS: Decubiti films demonstrate a large partially layering right pleural effusion.
--- NOTE | 2018-03-03 08:35 | RAD REPORT ---
EXAM DESCRIPTION: Dieter Virea And Chloe (2 Views)03/03/2018 8:06 am CLINICAL HISTORY: Shortness of breath COMPARISON: March 01 FINDINGS: A large right pleural effusion is present with right basilar atelectasis. Left lung appears clear. The heart is normal size IMPRESSION: Large right pleural effusion without significant change
--- NOTE | 2018-03-03 08:44 | P.PN ---
Subjective Date of Service: 03/03/18 Primary Care Provider: None Chief Complaint: Shortness of breath, edema to the lower extremities Subjective: Improving Physical Examination - Vital Signs Temperature: 97.9 F Blood Pressure: 114/62 Pulse: 83 Respirations: 20 Pulse Ox (%): 95 - Physical Exam General: Alert, In no apparent distress, Cooperative HEENT: Atraumatic Neck: Supple Respiratory: Diminished (To the right side) Cardiovascular: Normal pulses, Regular rate/rhythm Gastrointestinal: Normal bowel sounds, Soft and benign, Non-distended, No tenderness, No masses, No rebound, No guarding, Ascites (Mild ascites) Integumentary: No erythema, No warmth, No cyanosis, Tenderness/swelling (Edema to the lower extremities improved ) Neurological: Normal speech, Normal strength at 5/5 x4 extr, Normal tone, Normal affect Lymphatics: No axilla or inguinal lymphadenopathy - Studies Medications List Reviewed: Yes Assessment & Plan - Problems (Diagnosis) (1) Anemia Onset Date: 03/02/18 Current Visit: Yes Status: Acute Plan: Patient with severe anemia. Patient has received a total of 4 units. Hemoglobin still low. Need to get hemoglobin above 7.0 as the patient will require a EGD. Case discussed at length with GI. Patient will receive 1 more unit of blood. Will continue to monitor closely. Patient needs to be evaluated for esophagitis/gastritis. GI suspects cirrhosis related to undiagnosed hepatitis-C. Hepatitis panel pending. Before EGD done patient may require paracentesis versus thoracentesis. Case discussed with pulmonology. Options address with patient. After reviewing x-ray, large pleural effusion still noted. Pulmonology suggest that the patient may require chest tube due to the large pleural effusion. Will discuss further with pulmonology and GI along with the patient. Qualifiers: Anemia type: other cause (2) Cirrhosis Onset Date: 03/02/18 Current Visit: Yes Status: Acute Plan: Hepatitis panel pending. This likely is from on diagnose hepatitis-C. Case discussed with GI. Qualifiers: Hepatic cirrhosis type: unspecified hepatic cirrhosis Ascites presence: with ascites Qualified Code(s): K74.60 - Unspecified cirrhosis of liver; R18.8 - Other ascites (3) Shortness of breath Onset Date: 03/02/18 Current Visit: Yes Status: Acute Plan: Patient with large right-sided pleural effusion. Recheck chest x-ray shows no improvement. This is likely related to his cirrhosis. Case discussed at length with pulmonology. Pulmonology suggests the need for possible chest tube versus thoracentesis. He will outweigh options with patient. Patient will likely need chest tube. Await further recommendation. (4) Pleural effusion Onset Date: 03/02/18 Current Visit: Yes Status: Acute Plan: Continue as above. Await final recommendations from pulmonology. Patient may required chest tube (5) CHF (congestive heart failure) Onset Date: 03/02/18 Current Visit: Yes Status: Suspected Plan: Ejection fraction 81%. Patient may have a small component of congestive heart failure. Will discuss with cardiology. Will continue with diuresis. Qualifiers: Heart failure type: systolic Heart failure chronicity: acute on chronic Qualified Code(s): I50.23 - Acute on chronic systolic (congestive) heart failure (6) Adrenal mass Onset Date: 03/02/18 Current Visit: Yes Status: Acute Plan: Left 30 mm adrenal mass. Case discussed with radiology. MRI done. Will review MRI with radiology. (7) Inguinal hernia Onset Date: 03/02/18 Current Visit: Yes Status: Chronic Plan: Large right-sided inguinal hernia. No heavy lifting, pushing or pulling. This can be addressed by surgery as an outpatient. Qualifiers: Obstruction and gangrene presence: without obstruction or gangrene Laterality: unilateral (8) Ascites Onset Date: 03/02/18 Current Visit: Yes Status: Acute Plan: Likely from his cirrhosis. Original CT scan showed small amount of ascites. Will continue to monitor closely. Qualifiers: Ascites type: other type Qualified Code(s): R18.8 - Other ascites (9) GERD (gastroesophageal reflux disease) Current Visit: Yes Status: Suspected Plan: Will continue with PPI. Qualifiers: Esophagitis presence: with esophagitis Qualified Code(s): K21.0 - Gastro- esophageal reflux disease with esophagitis (10) History of melena Current Visit: Yes Status: Acute Plan: Patient had reported some melena several weeks ago. Patient will require EGD. Will continue with above plan of care. Patient will need to be stable from a respiratory standpoint before EGD. Will discuss with GI and pulmonology. Discharge Plan: Home Plan to discharge in: Greater than 2 days Time Spent Managing Pts Care (In Minutes): 55
--- NOTE | 2018-03-03 08:47 | RAD REPORT ---
EXAM DESCRIPTION: MRI - Abdomen WWo Cont - 03/02/2018 10:20 pm CLINICAL HISTORY: Left adrenal mass COMPARISON: March 01, 2018 cat scan TECHNIQUE: Axial and coronal magnetic resonance images of the liver were obtained. FINDINGS: Many of the images are degraded by patient motion artifact. The out of phase gradient echo sequences demonstrate tiny areas of diminished signal probably represe nting lipid within a 35 millimeter left adrenal mass . IMPRESSION: 35 millimeter left adrenal mass most likely representing an adenoma. A follow-up ultraso und in 6 months would be helpful to assess stability
[2018-03-03] MEDS: ENOXAPARIN 40 MG/0.4 ML SQ SCH (08:48)
[2018-03-03] MEDS: SPIRONOLACTONE 25 MG TABLET PO SCH (08:49)
[2018-03-03] MEDS: FUROSEMIDE 40 MG/4 ML VIAL IV SCH ×2 (08:49→15:33)
[2018-03-03] MEDS: PANTOPRAZOLE 40 MG INJ IVP SCH (08:49)
[2018-03-03] MEDS: BENZONATATE 100 MG CAP PO PRN ×3 (08:49→21:14)
--- NOTE | 2018-03-03 10:00 | RAD REPORT ---
EXAM DESCRIPTION: US - Abdomen Exam Complete - 03/03/2018 8:23 am CLINICAL HISTORY: Abdominal pain COMPARISON: CT March 01, 2018 FINDINGS: A cirrhotic liver is present. It contains a 2 centimeter cyst. The portal vein is patent A gallstone is not seen. The gallbladder wall is not significantly thickened. The biliary tree is nor mal caliber. The pancreas appears normal in size and echotexture. The right kidney measures 10 centimeters with a normal echotexture. The left kidney measures 11 centimeters with a normal echotexture. The spleen measures 17 centimeters. The abdominal aorta and inferior vena cava appear unremarkable A small amount of ascites is seen. 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 Follow-up ultrasound in 6 months is recommended to assess stability
[2018-03-03] MEDS ORDERED: NA CHLORIDE 0.9% 250 ML ONE (11:36)
[2018-03-03 12:00] LABS: Protime INR 1.32
--- NOTE | 2018-03-03 12:14 | P.CNS ---
Date of Consult: 03/03/18 Reason for Consult: Right-sided pleural effusion Primary Care Provider: None Chief Complaint: Shortness of breath, edema to the lower extremities History of Present Illness: Patient is 62 years of age previously healthy complaining of 2 week history of increasing dyspnea lower extremity edema he was admitted with a massive pleural effusion and this cirrhosis of the liver denies any cough sputum hemoptysis or chest pain no prior history of cardiopulmonary of liver disease history of drug injections the patient was a teenager denies any fever or weight loss his edema has improved shortness of breath is also improved Allergies acromycin Allergy (Uncoded 03/01/18 22:20) Unknown Home Medications: NK [No Home Meds] 03/01/18 - Past Medical/Surgical History Diabetic: No -: hypertension Psychosocial/ Personal History: Patient is . 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 - Social History Alcohol use: No CD- Drugs: No Caffeine use: Yes Place of Residence: Home Review of Systems General: Weakness Respiratory: Shortness of Breath Cardiovascular: Edema Gastrointestinal: Distention Physical Examination Temp Pulse Resp BP Pulse Ox 97.9 F 81 20 125/64 95 03/03/18 08:45 03/03/18 08:49 03/03/18 08:45 03/03/18 08:49 03/03/18 08:45 General: Alert, Oriented x3 HEENT: Atraumatic Neck: Supple Respiratory: Diminished (Markedly diminished air entry on the right side dull to percussion consistent with pleural effusion) Cardiovascular: No edema, Regular rate/rhythm Gastrointestinal: Normal bowel sounds, Soft and benign, Distended Musculoskeletal: Swelling (2+ edema) Neurological: Normal speech, Normal strength at 5/5 x4 extr - Problems (1) Pleural effusion Current Visit: Yes Status: Acute Plan: Patient is 62 years of age admitted with a massive right-sided pleural effusion secondary to cirrhosis of the liver patient is very any neck denies any history of GI bleeding he does have varices ultrasound confirms cirrhosis he also has portal hypertension and splenomegaly patient will need a chest tube due to the size of the pleural effusion general surgery has been consulted transfused packed red blood cells patient also need endoscopy BNP was normal
[2018-03-03 17:05] LABS: Hematocrit 27.8 % (39.6-49.0)
[2018-03-03] MEDS ORDERED: LIDOCAINE 1% 20 ML MDV ONE (20:11)
[2018-03-03 22:02] LABS: Hematocrit 25.3 % (39.6-49.0)
[2018-03-04 05:04] LABS: Absolute Lymphocytes (CBC) 0.6 K/uL (0.7-4.9); Absolute Monocytes 0.4 K/uL (0.1-1.3); Absolute Neutrophil 1.5 K/uL (1.8-8.0); Basophils % 1.2 % (0-1.3); Eosinophils % 7.6 % (0-4.4); Hematocrit 23.8 % (39.6-49.0); Lymphocytes % 23.3 % (15.3-44.8); MCH 24.8 pg (27.0-35.0); MCV 76.1 fL (80-100); MPV 8.8 fL (7.6-11.3); Monocytes % 12.9 % (3.3-12.3); RBC Red Blood Cell Count 3.13 M/uL (4.33-5.43)
[2018-03-04 05:14] LABS: Albumin 2.3 g/dL (3.4-5.0); Magnesium 1.7 mg/dL (1.8-2.4); Potassium 3.3 mmol/L (3.5-5.1); Protein, Total 5.8 g/dL (6.4-8.2)
[2018-03-04] MEDS ORDERED: MAGNESIUM SULFATE 1 gm IVPB 1 GM/100 ML BAG IV ONE (06:00)
[2018-03-04] MEDS ORDERED: KCL 20 MEQ/100 mL IVPB 20 MEQ/100 ML BAG IV SCH (08:00)
--- NOTE | 2018-03-04 08:30 | P.PN ---
Subjective Date of Service: 03/04/18 Primary Care Provider: None Chief Complaint: Shortness of breath, edema to the lower extremities Subjective: Improving Physical Examination - Vital Signs Temperature: 99.0 F Blood Pressure: 121/60 Pulse: 88 Respirations: 18 Pulse Ox (%): 95 - Physical Exam General: Alert, In no apparent distress, Oriented x3, Cooperative HEENT: Atraumatic Neck: Supple Respiratory: Diminished (To the right side) Cardiovascular: Normal pulses, Regular rate/rhythm Gastrointestinal: Normal bowel sounds, Soft and benign, Non-distended, No tenderness, No masses, No rebound, No guarding, Ascites (Minimal ascites) Musculoskeletal: No erythema, No tenderness, No warmth Integumentary: Tenderness/swelling (Edema to the lower extremities improved. Nonpitting noted.) Neurological: Normal speech, Normal strength at 5/5 x4 extr, Normal tone, Normal affect Lymphatics: No axilla or inguinal lymphadenopathy - Studies Medications List Reviewed: Yes Assessment & Plan - Problems (Diagnosis) (1) Anemia Onset Date: 03/02/18 Current Visit: Yes Status: Acute Plan: Patient with severe anemia. Patient has received a total of 5 units. Hemoglobin stable at 7.8. Patient had positive guaiac. Spoke with GI yesterday. GI plans to do a EGD later today after chest tube is placed. Patient needs to be evaluated for esophagitis/gastritis. Will continue to monitor hemoglobin. If it goes below 7 will transfuse. GI suspects cirrhosis related to undiagnosed hepatitis-C. Hepatitis panel pending. Qualifiers: Anemia type: other cause (2) Cirrhosis Onset Date: 03/02/18 Current Visit: Yes Status: Acute Plan: Hepatitis panel pending. This likely is from undiagnosed hepatitis-C. Case discussed with GI. Qualifiers: Hepatic cirrhosis type: unspecified hepatic cirrhosis Ascites presence: with ascites Qualified Code(s): K74.60 - Unspecified cirrhosis of liver; R18.8 - Other ascites (3) Shortness of breath Onset Date: 03/02/18 Current Visit: Yes Status: Acute Plan: Patient with large right-sided pleural effusion. Case discussed with pulmonology and surgery. Chest tube placement to be done this morning. Will monitor closely thereafter. (4) Pleural effusion Onset Date: 03/02/18 Current Visit: Yes Status: Acute Plan: Continue as above. Chest tube to be placed today. (5) CHF (congestive heart failure) Onset Date: 03/02/18 Current Visit: Yes Status: Suspected Plan: Ejection fraction 81%. Patient may have a small component of diastolic dysfunction congestive heart failure. Will discuss with cardiology. Will continue with diuresis. Qualifiers: Heart failure type: systolic Heart failure chronicity: acute on chronic Qualified Code(s): I50.23 - Acute on chronic systolic (congestive) heart failure (6) Adrenal mass Onset Date: 03/02/18 Current Visit: Yes Status: Acute Plan: MRI adrenal protocol done. 35 mm left adrenal mass noted. Likely adenoma. No intervention needed at this time. Recommendation to recheck ultrasound in 3-6 months to monitor stability. (7) Inguinal hernia Onset Date: 03/02/18 Current Visit: Yes Status: Chronic Plan: Large right-sided inguinal hernia. No heavy lifting, pushing or pulling. This can be addressed by surgery as an outpatient. Qualifiers: Obstruction and gangrene presence: without obstruction or gangrene Laterality: unilateral (8) Ascites Onset Date: 03/02/18 Current Visit: Yes Status: Acute Plan: Likely from his cirrhosis. Original CT scan showed small amount of ascites. Will continue to monitor closely. Qualifiers: Ascites type: other type Qualified Code(s): R18.8 - Other ascites (9) GERD (gastroesophageal reflux disease) Current Visit: Yes Status: Suspected Plan: Will continue with PPI. GI plans for EGD today. Qualifiers: Esophagitis presence: with esophagitis Qualified Code(s): K21.0 - Gastro- esophageal reflux disease with esophagitis (10) History of melena Current Visit: Yes Status: Acute Plan: Patient had reported some melena several weeks ago. EGD planned for today. Discharge Plan: Home Plan to discharge in: Greater than 2 days Time Spent Managing Pts Care (In Minutes): 55
[2018-03-04] MEDS: ENOXAPARIN 40 MG/0.4 ML SQ SCH (08:47)
[2018-03-04] MEDS: PANTOPRAZOLE 40 MG INJ IVP SCH (09:00)
[2018-03-04] MEDS: SPIRONOLACTONE 25 MG TABLET PO SCH (09:00)
[2018-03-04] MEDS: FUROSEMIDE 40 MG/4 ML VIAL IV SCH ×2 (09:00→16:56)
[2018-03-04] MEDS ORDERED: POTASSIUM CL SA 10 MEQ TAB PO ONE (09:27)
--- NOTE | 2018-03-04 10:50 | P.OP ---
Preoperative diagnosis: Right Pleural Effusion Postoperative diagnosis: Right Pleural Effusion Primary procedure: Placement of 16 Nicaraguan THAL Right Thoracostomy Tube Anesthesia: Local lidocaine Estimated blood loss: <5cc Specimen: Thoracic Fluid Findings: Straw colored fluid Complications: None Drain(s): Other (Chest Tube) Transferred to: Other (Room) Condition: Good
[2018-03-04] MEDS ORDERED: TRAMADOL HCL 50 MG TAB PO PRN (10:55)
[2018-03-04] MEDS: HYDROCODONE/APAP 7.5/325 MG TAB PO PRN ×2 (11:13→16:55)
--- NOTE | 2018-03-04 11:32 | RAD REPORT ---
EXAM DESCRIPTION: [facility] Single View03/04/2018 11:19 am CLINICAL HISTORY: Shortness breath COMPARISON: none FINDINGS: A right chest tube has been inserted with its tip in the medial upper right hemithorax. A large amount of the right pleural effusion has been evacuated. A pneumothorax is not seen. The lungs appear clear of acute infiltrate. The heart is normal size IMPRESSION: Placement of a right chest tube with evacuation of a large amount of right pleural effus ion. A pneumothorax is not seen
[2018-03-04 11:40] LABS: Body Fluid WBC 331 /mm^3
[2018-03-04 12:15] LABS: Appearance CLEAR (CLEAR); Body Fluid Source PLEURAL; Color of fluid Yellow (COLORLESS)
--- NOTE | 2018-03-04 12:40 | CON ---
Date of Consultation: 03/03/2018 Brief History Of Present Illness: The patient is a 62-year-old male, who presents emergenc y room with shortness of breath on 03/01/2018. It has been present for approximately a month and miguel ng progressively worse over the last 2 weeks and he was concerned at that point and [place] [facility] [place] [place]. He denied any melena, rectal bleeding, nausea, vomiting, and did have a small cough. H e had occasional heartburn. He had been taking some Aleve for this with increasing amount over the p ast few weeks. In ER, the patient had anasarca. He had bilateral lower extremity edema. His hemogl obin was 4.1. He was worked up and imaging showed that he had a significant right pleural effusion. As such, I was consulted for this. Past Medical History: Denies past medical history. Past Surgical History: Denies. Social History: He is . 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 His family history wa s reviewed and noncontributory. He denies smoking, alcohol, recreational drug use. Review of Systems: In addition to the above stated complaints, he has some weakness. Other than abdomen, he also has co ncerns of a large right-sided inguinal hernia. Physical Examination: General: At the time of my examination, he is awake, alert, oriented. Psychiatric: He is appropriate and conversive. HEENT: Normocephalic. His sclerae were anicteric. His mucous membranes were moist. His oropharynx was clear. Neck: Supple. No JVD. Chest: Had normal expansion and excursion, but decreased breath sounds on the right significantly co nsistent with the above stated finding of right pleural effusion. Extremities: He still had edema to bilateral lower extremities, 2+ pitting. Vital Signs: His vital signs at time of my examination were blood pressure 118/55, pulse is 82, resp iratory rate 18, temperature 98.6. His oxygen saturation was 97% on room air. Laboratory Data: Revealed a white blood count of 3.0, hemoglobin 6.8, hematocrit 21.3, platelet coun t was 124. His PT was 15.6, INR 1.32. Sodium 142, potassium 4.1, chloride 107, carbon dioxide 29, B UN 14, creatinine 1.1, glucose is 108, magnesium 2.0, total bilirubin 1.1, direct component is not me asured. AST is 41, ALT 49, alk phos 100. His UA was essentially negative. He had imaging performed as described above, which included a CT scan of the abdomen and pelvis on 03/01, which showed large right pleural effusion, cirrhosis, large right inguinal hernia containing a nondilated bowel and asci gage. He has recannulization of the umbilical vein as well and there are varices. The spleen is mild to moderately large, measuring 15 cm. A 30 mm left adrenal mass is present as well. He has a small left inguinal hernia, which contains fat as well as small amount of ascites. He has an umbilical he rnia as well with a neck of 27 mm. He had an abdominal MRI on 03/02, which officially read as 35 mm left adrenal mass, most likely representing an adenoma. Recommend followup in 6 months with repeated imaging. Abdominal ultrasound performed on 03/03, which officially read cirrhosis and varices and r ecanalization of the umbilical veins, mild splenomegaly, 3.6 cm left adrenal mass probably represents adenoma. Followup ultrasound is recommended. Chest x-ray performed on 03/03, officially read as de cubitus film demonstrates large partially layering right pleural effusion. Assessment And Plan: A 62-year-old man, who presents with multiple medical problems, but currently h e has a large right pleural effusion. I am consulted to discuss placement of a right thoracostomy tu be for symptomatic improvement as well as analysis. I therefore explained the risks, benefits, and a lternatives of placement of right thoracic chest tube including, but not limited to bleeding, infecti on, damage to surrounding tissue, pneumothorax, need for further operations and procedures. The mary ent agrees to proceed as indicated. The patient will be transfused and I will therefore plan on dionisio chi the chest x-ray on 03/04 in the bedside. Thank you for this interesting consult. DAI/MICKY Voice ID: [id number] Report ID: [id number]
[2018-03-04] MEDS: ACETAMINOPHEN 500 MG TAB PO PRN (15:37)
[2018-03-04 17:53] LABS: HIV 1/2 Antibody Diff Not indicated.; HIV AG/AB 4TH GEN Non-reactive (Non-reactive)
[2018-03-04 18:13] LABS: HBsAG Nonreactive (Nonreactive); Hepatitis A IgM Antibody Nonreactive
--- NOTE | 2018-03-04 19:16 | RAD REPORT ---
EXAM DESCRIPTION: RAD - Chest Single View - 03/04/2018 7:01 pm CLINICAL HISTORY: pain after chest tube placement Chest pain. COMPARISON: Chest Single View dated 03/04/2018; Chest Pa And Lat (2 Views) dated 03/03/2018; Chest Sin gle View dated 03/01/2018; Chest Abdomen Pelvis W Cont dated 03/01/2018 FINDINGS: Portable technique limits examination quality. Right-sided chest tube is again noted directed cephalad medially. The right hemidiaphragm remains michael vated without clear change. The left lung is grossly clear. No measurable pneumothorax. The heart is normal in size.
[2018-03-04] MEDS ORDERED: Morphine 2 MG/2 ML SYR IV PRN (20:15)
[2018-03-04] MEDS: MORPHINE 2 MG/ML SYR ONE (20:43)
--- NOTE | 2018-03-04 22:23 | OP ---
Date of Procedure: 03/04/2018 Surgeon: Charly Kunz MD, Preoperative Diagnosis: Right pleural effusion. Postoperative Diagnosis: Right pleural effusion. Procedure Performed: Placement of a 16-Amharic Thal right thoracostomy tube. Anesthesia: Local lidocaine 1% used. Estimated Blood Loss: Less than 5 cc. Specimen: Clear straw-colored thoracic fluid. Findings: Straw-colored fluid only. There was a small air leak at the end the procedure. Complications: None. Drains: The chest tube as described above. The patient remained in the room throughout the procedur e in good condition. Procedure In Detail: After informed was obtained, the patient was prepped and draped in the usual st erile fashion. After adequate anesthesia was achieved, I anesthetized an area over the rib correspon ding to the 5th and 6th intercostal space on the right approximately. I then made an incision over t he skin of this area and used the finder needle to enter the thoracic space. Straw-colored fluid was returned immediately. The guidewire was advanced using Seldinger technique. The needle was removed and I performed sequential dilatation using the attached dilators. I then placed a 16-Amharic Thal c hest tube in using the introducer without evidence of complication. Straw-colored fluid was noted to be returned immediately. This was hooked up to the Pneumovax system immediately and we obtained zonia roximately 2 L of fluid immediately. Some of this was sent for fluid analysis. I then secured the t ube to the chest using 2-0 silk suture and placed a sterile dressing over top. The patient tolerated the procedure well without evidence of complication, remained in the room throughout the procedure. All counts were correct at the end of the case. A stat chest x-ray will be performed. DAI/MICKY Voice ID: [id number] Report ID: [id number]
[2018-03-05] MEDS: HYDROCODONE/APAP 7.5/325 MG TAB PO PRN ×2 (00:14→09:03)
[2018-03-05] MEDS ORDERED: MORPHINE 2 MG/ML SYR ONE (06:01)
[2018-03-05] MEDS: MORPHINE 2 MG/ML SYR ONE (06:02)
[2018-03-05 06:05] LABS: Absolute Lymphocytes (CBC) 0.6 K/uL (0.7-4.9); Absolute Monocytes 0.3 K/uL (0.1-1.3); Absolute Neutrophil 2.2 K/uL (1.8-8.0); Basophils % 0.7 % (0-1.3); Eosinophils % 6.8 % (0-4.4); Hematocrit 27.6 % (39.6-49.0); Lymphocytes % 17.4 % (15.3-44.8); MCH 24.4 pg (27.0-35.0); MCV 77.5 fL (80-100); MPV 8.7 fL (7.6-11.3); RBC Red Blood Cell Count 3.56 M/uL (4.33-5.43)
[2018-03-05 06:14] LABS: Albumin 2.5 g/dL (3.4-5.0); Bilirubin Total 1.3 mg/dL (0.2-1.0); Magnesium 1.9 mg/dL (1.8-2.4); Potassium 3.8 mmol/L (3.5-5.1); Protein, Total 6.1 g/dL (6.4-8.2)
[2018-03-05] MEDS ORDERED: POTASSIUM 25 MEQ EFFERV TAB PO ONE (06:27)
[2018-03-05 08:03] LABS: Anisocytosis 3+; Blood Morphology Comment NOTED (NOT SEEN); Platelet Estimate DECR; Urine White Blood Cell Casts OK
[2018-03-05 08:04] LABS: Ovalocytes 1+; Platelets, Giant PRESENT
--- NOTE | 2018-03-05 08:22 | P.PN ---
Subjective Date of Service: 03/05/18 Primary Care Provider: None Chief Complaint: Shortness of breath, edema to the lower extremities Subjective: Improving (Pain issues last night, but feeling much better today, no SOB) Physical Examination - Vital Signs Temperature: 97.7 F Blood Pressure: 129/72 Pulse: 72 Respirations: 18 Pulse Ox (%): 94 - Physical Exam General: Alert, In no apparent distress, Cooperative Respiratory: Clear to auscultation bilaterally, Normal air movement, Other ( Right Chest tube in place - small air leak,) - Studies Medications List Reviewed: Yes Assessment And Plan - Current Problems (Diagnosis) (1) Pleural effusion Onset Date: 03/02/18 Current Visit: Yes Status: Acute Plan: - chest tube to low wall suction - daily chest x -rays - will follow
--- NOTE | 2018-03-05 08:44 | P.PN ---
Subjective Date of Service: 03/05/18 Primary Care Provider: None Chief Complaint: Shortness of breath, edema to the lower extremities Subjective: Doing well (Patient doing better than yesterday. Patient had mild pain after chest tube placed.) Physical Examination - Vital Signs Temperature: 97.7 F Blood Pressure: 129/72 Pulse: 72 Respirations: 18 Pulse Ox (%): 94 - Physical Exam General: Alert, In no apparent distress, Oriented x3, Cooperative HEENT: Atraumatic Neck: Supple Respiratory: Other (Better air movement noted to the right side. Chest tube in place. Pain with deep inspiration) Cardiovascular: Normal pulses, Regular rate/rhythm Gastrointestinal: Normal bowel sounds, Soft and benign, Non-distended, No tenderness, No masses, No rebound, No guarding Musculoskeletal: No erythema, No tenderness, No warmth Integumentary: No erythema, No warmth, No cyanosis, Tenderness/swelling (No significant edema to the lower extremities. This is much improved since admission.) Neurological: Normal speech, Normal strength at 5/5 x4 extr, Normal tone, Normal affect Lymphatics: No axilla or inguinal lymphadenopathy - Studies Medications List Reviewed: Yes Assessment & Plan - Problems (Diagnosis) (1) Anemia Onset Date: 03/02/18 Current Visit: Yes Status: Acute Plan: Patient with severe anemia. Patient has received a total of 5 units. Hemoglobin stable at 8.7. GI plans to do EGD after chest tube is removed. This can be also done as an outpatient. Will discuss with GI further. Will continue monitor hemoglobin. GI suspects cirrhosis related to undiagnosed hepatitis-C. Hepatitis panel confirms hepatitis-C diagnosis. Qualifiers: Anemia type: other cause (2) Cirrhosis Onset Date: 03/02/18 Current Visit: Yes Status: Acute Plan: Hepatitis panel positive for hepatitis-C. Will discuss case further with GI. Further workup for cirrhosis can be done as an outpatient including treatment options. Qualifiers: Ascites presence: with ascites (3) Shortness of breath Onset Date: 03/02/18 Current Visit: Yes Status: Acute Plan: Patient had chest tube placed yesterday. Much improved since yesterday. Will provide medication for pain. Case discussed with surgery. Will continue with suction today. Will repeat chest x-ray tomorrow. Possible removal of chest tube in the next 2 days. (4) Pleural effusion Onset Date: 03/02/18 Current Visit: Yes Status: Acute Plan: Continue as above. Chest tube placed yesterday. (5) CHF (congestive heart failure) Onset Date: 03/02/18 Current Visit: Yes Status: Suspected Plan: Ejection fraction 81%. Patient may have a small component of diastolic dysfunction congestive heart failure. Will continue to make adjustments to diuretic therapy. Will switch to IV Lasix to oral. Qualifiers: Heart failure type: systolic Heart failure chronicity: acute on chronic Qualified Code(s): I50.23 - Acute on chronic systolic (congestive) heart failure (6) Adrenal mass Onset Date: 03/02/18 Current Visit: Yes Status: Acute Plan: MRI adrenal protocol done. 35 mm left adrenal mass noted. Likely adenoma. No intervention needed at this time. Recommendation to recheck ultrasound in 3-6 months to monitor stability. (7) Inguinal hernia Onset Date: 03/02/18 Current Visit: Yes Status: Chronic Plan: Large right-sided inguinal hernia. No heavy lifting, pushing or pulling. This can be addressed by surgery as an outpatient. Qualifiers: Obstruction and gangrene presence: without obstruction or gangrene Laterality: unilateral (8) Ascites Onset Date: 03/02/18 Current Visit: Yes Status: Acute Plan: Likely from his cirrhosis. Original CT scan showed small amount of ascites. Will continue to monitor closely. Qualifiers: Ascites type: other type Qualified Code(s): R18.8 - Other ascites (9) GERD (gastroesophageal reflux disease) Current Visit: Yes Status: Suspected Plan: Will continue with PPI. GI plans for EGD after chest tube is removed. This also can be done as an outpatient. Will discuss plan of care with GI. Qualifiers: Esophagitis presence: with esophagitis Qualified Code(s): K21.0 - Gastro- esophageal reflux disease with esophagitis (10) History of melena Current Visit: Yes Status: Acute Plan: Patient had reported some melena several weeks ago. Continue as above (11) Hepatitis C Current Visit: Yes Status: Acute Plan: New diagnosis of hepatitis-C. This is likely the cause of his cirrhosis. Will discuss with GI about treatment options likely as an outpatient. Qualifiers: Viral hepatitis chronicity: chronic Hepatic coma status: without hepatic coma Qualified Code(s): B18.2 - Chronic viral hepatitis C Discharge Plan: Home Plan to discharge in: Greater than 2 days Time Spent Managing Pts Care (In Minutes): 55
[2018-03-05] MEDS: PANTOPRAZOLE 40 MG INJ IVP SCH (08:57)
[2018-03-05] MEDS: FUROSEMIDE 40 MG TABLET PO SCH ×2 (08:57→18:47)
[2018-03-05] MEDS: ENOXAPARIN 40 MG/0.4 ML SQ SCH (08:57)
[2018-03-05] MEDS: SPIRONOLACTONE 25 MG TABLET PO SCH (08:57)
[2018-03-05] MEDS: MORPHINE 2 MG/ML SYR IV PRN ×3 (09:44→22:39)
[2018-03-05 15:37] LABS: Hepatitis C Virus RNA (PCR)log 5.23 log IU/mL
[2018-03-06 05:24] LABS: Absolute Lymphocytes (CBC) 0.5 K/uL (0.7-4.9); Absolute Monocytes 0.3 K/uL (0.1-1.3); Absolute Neutrophil 2.2 K/uL (1.8-8.0); Basophils % 1.2 % (0-1.3); Eosinophils % 6.6 % (0-4.4); Hematocrit 28.1 % (39.6-49.0); Lymphocytes % 14.4 % (15.3-44.8); MCH 23.9 pg (27.0-35.0); MCV 77.8 fL (80-100); MPV 8.7 fL (7.6-11.3); Monocytes % 10.4 % (3.3-12.3); RBC Red Blood Cell Count 3.62 M/uL (4.33-5.43)
[2018-03-06 05:41] LABS: Albumin 2.4 g/dL (3.4-5.0); Bilirubin Total 0.8 mg/dL (0.2-1.0); Magnesium 1.8 mg/dL (1.8-2.4); Potassium 3.8 mmol/L (3.5-5.1); Protein, Total 6.1 g/dL (6.4-8.2)
[2018-03-06] MEDS ORDERED: MAGNESIUM SULFATE 1 gm IVPB 1 GM/100 ML BAG IV ONE (06:21)
[2018-03-06] MEDS ORDERED: POTASSIUM 25 MEQ EFFERV TAB PO ONE (06:22)
--- NOTE | 2018-03-06 07:36 | RAD REPORT ---
EXAM DESCRIPTION: RAD - Chest Single View - 03/06/2018 6:29 am CLINICAL HISTORY: Pleural effusion, right-sided chest tube COMPARISON: March 04 imaging TECHNIQUE: AP portable chest image was obtained 0617 hours . FINDINGS: Chest tube remains in place at the right lung base. Tip is near the midline. No new or enl arging right-sided pneumothorax. Lung volumes remain low with elevated right hemidiaphragm. No new thania ng parenchymal process. No failure or volume overload. Heart and vasculature are normal. IMPRESSION: Right-sided chest tube with no change in positioning. No new or enlarging pneumothorax. Lung volumes remain low with elevated right hemidiaphragm. No new or enlarging right-sided pneumothorax. No measurable pleural fluid on portable projection.
--- NOTE | 2018-03-06 08:12 | P.PN ---
Subjective Date of Service: 03/06/18 Primary Care Provider: None Chief Complaint: Shortness of breath, edema to the lower extremities Subjective: Improving, Doing well Physical Examination - Vital Signs Temperature: 98.2 F Blood Pressure: 125/81 Pulse: 82 Respirations: 17 Pulse Ox (%): 99 - Physical Exam General: Alert, In no apparent distress, Oriented x3, Cooperative HEENT: Atraumatic, Mucous membr. moist/pink Neck: Supple Respiratory: Clear to auscultation bilaterally, Normal air movement, Other ( Chest tube in place to right side) Cardiovascular: Normal pulses, Regular rate/rhythm Gastrointestinal: Normal bowel sounds, Soft and benign, Non-distended, No tenderness, No masses, No rebound, No guarding, Ascites (Mild ascites noted) Musculoskeletal: No erythema, No tenderness, No warmth Integumentary: No tenderness/swelling, No erythema, No warmth, No cyanosis Neurological: Normal speech, Normal strength at 5/5 x4 extr, Normal tone, Normal affect - Studies Medications List Reviewed: Yes Assessment & Plan - Problems (Diagnosis) (1) Anemia Onset Date: 03/02/18 Current Visit: Yes Status: Acute Plan: Patient with severe anemia. Patient has received a total of 5 units. Hemoglobin remained stable. No need for transfusion at this time. Continue with iron supplementation. GI plans to do EGD after chest tube is removed. This can be also done as an outpatient or inpatient. Will discuss with GI further. Will continue monitor hemoglobin. GI suspects cirrhosis related to undiagnosed hepatitis-C. Hepatitis panel confirms hepatitis-C diagnosis. Qualifiers: Anemia type: other cause (2) Cirrhosis Onset Date: 03/02/18 Current Visit: Yes Status: Acute Plan: Hepatitis panel positive for hepatitis-C. Will discuss case further with GI. Further workup for cirrhosis can be done as an outpatient including treatment options. Continue with Lasix and Aldactone. Qualifiers: Ascites presence: with ascites (3) Shortness of breath Onset Date: 03/02/18 Current Visit: Yes Status: Acute Plan: X-ray shows no new or enlarging pneumothorax. Chest tube in place. Hopefully chest tube can be removed today. Will discuss with surgery. Case discussed with pulmonology. Pulmonology recommends removal of chest tube (4) Pleural effusion Onset Date: 03/02/18 Current Visit: Yes Status: Acute Plan: Continue as above. Chest tube in place. Hopefully chest tube can be removed today. (5) CHF (congestive heart failure) Onset Date: 03/02/18 Current Visit: Yes Status: Suspected Plan: Ejection fraction 81%. Patient may have a small component of diastolic dysfunction congestive heart failure. Continue with Lasix and Aldactone. Patient will require fluid restriction. Qualifiers: Heart failure type: systolic Heart failure chronicity: acute on chronic Qualified Code(s): I50.23 - Acute on chronic systolic (congestive) heart failure (6) Adrenal mass Onset Date: 03/02/18 Current Visit: Yes Status: Acute Plan: MRI adrenal protocol done. 35 mm left adrenal mass noted. Likely adenoma. No intervention needed at this time. Recommendation to recheck ultrasound in 3-6 months to monitor stability. (7) Inguinal hernia Onset Date: 03/02/18 Current Visit: Yes Status: Chronic Plan: Large right-sided inguinal hernia. No heavy lifting, pushing or pulling. This can be addressed by surgery as an outpatient. Qualifiers: Obstruction and gangrene presence: without obstruction or gangrene Laterality: unilateral (8) Ascites Onset Date: 03/02/18 Current Visit: Yes Status: Acute Plan: Likely from his cirrhosis. Original CT scan showed small amount of ascites. Will continue to monitor closely. Qualifiers: Ascites type: other type Qualified Code(s): R18.8 - Other ascites (9) GERD (gastroesophageal reflux disease) Current Visit: Yes Status: Suspected Plan: Will continue with PPI. GI plans for EGD after chest tube is removed. This can be done as an outpatient or inpatient. Will discuss with GI. Qualifiers: Esophagitis presence: with esophagitis Qualified Code(s): K21.0 - Gastro- esophageal reflux disease with esophagitis (10) History of melena Current Visit: Yes Status: Acute Plan: Patient had reported some melena several weeks ago. Continue as above (11) Hepatitis C Current Visit: Yes Status: Acute Plan: New diagnosis of hepatitis-C. This is likely the cause of his cirrhosis. Will discuss with GI about treatment options likely as an outpatient. Qualifiers: Viral hepatitis chronicity: chronic Hepatic coma status: without hepatic coma Qualified Code(s): B18.2 - Chronic viral hepatitis C Discharge Plan: Home Plan to discharge in: 48 Hours Time Spent Managing Pts Care (In Minutes): 55
--- NOTE | 2018-03-06 08:22 | P.PN ---
Subjective Date of Service: 03/06/18 Primary Care Provider: None Chief Complaint: Pleural effusion and cirrhosis Subjective: Improving (Patient has improved significantly the chest tube put in about 2 days ago no new complaints) Review of Systems Unremarkable Physical Examination - Vital Signs Temperature: 98.2 F Blood Pressure: 125/81 Pulse: 82 Respirations: 17 Pulse Ox (%): 99 - Physical Exam General: Alert, Oriented x3 HEENT: Atraumatic Neck: Supple Respiratory: Clear to auscultation bilaterally Cardiovascular: No edema, Normal S1 S2 - Studies Medications List Reviewed: Yes Assessment & Plan - Problems (Diagnosis) (1) Pleural effusion Current Visit: Yes Status: Acute Plan: Patient is 62 years of age admitted with the right-sided pleural effusion secondary to cirrhosis of the liver and newly diagnosed hep C positive his hemoglobin is back up to 8.7 shows a predominant lymphocytic effusion doubt infection I suggest removing his chest tube today discharge patient treat for his cirrhosis to follow up with GI continue with spironolactone pantoprazole Fox p.r.n.
[2018-03-06] MEDS: PANTOPRAZOLE 40 MG INJ IVP SCH (09:21)
[2018-03-06] MEDS: SPIRONOLACTONE 25 MG TABLET PO SCH (09:21)
[2018-03-06] MEDS: ENOXAPARIN 40 MG/0.4 ML SQ SCH (09:21)
[2018-03-06] MEDS: FUROSEMIDE 40 MG TABLET PO SCH ×2 (09:22→17:13)
[2018-03-06] MEDS: MORPHINE 2 MG/ML SYR IV PRN ×2 (09:38→13:58)
[2018-03-06] MEDS: FERROUS SULFATE 325 MG TAB PO SCH ×2 (09:38→20:17)
--- NOTE | 2018-03-06 15:31 | RAD REPORT ---
EXAM DESCRIPTION: RAD - Chest Single View - 03/06/2018 3:19 pm CLINICAL HISTORY: Chest tube, pneumothorax, pleural effusion COMPARISON: March 06 TECHNIQUE: AP portable chest image was obtained 1418 hours in both inspiration and expiration. . FINDINGS: Lung volumes remain low and right hemidiaphragm remains elevated. Chest tube has not fields ed position. No measurable pneumothorax. Anterior pneumothorax can be occult on a portable chest examination. Lung base atelectasis present. No measurable pleural fluid collection remains. No gross bony abnormality seen. No acute aortic findings suspected. IMPRESSION: No pneumothorax is identifiable. An anterior pneumothorax can be occult on CT imaging.
--- NOTE | 2018-03-06 19:01 | RAD REPORT ---
EXAM DESCRIPTION: RAD - Chest Single View - 03/06/2018 6:16 pm CLINICAL HISTORY: Chest tube removal COMPARISON: March 06 TECHNIQUE: AP portable chest image was obtained 1804 hours . FINDINGS: Lung volumes remain low and right hemidiaphragm remains elevated. Chest tube has been yaneli santo. No identifiable pneumothorax. No pleural fluid component. Left lung field is clear with no left- sided pleural abnormality. Heart and vasculature are normal. IMPRESSION: No identifiable pneumothorax following chest tube removal.
[2018-03-06] MEDS: ACETAMINOPHEN 500 MG TAB PO PRN (19:51)
[2018-03-07] MEDS ORDERED: POTASSIUM 25 MEQ EFFERV TAB PO ONE (09:00)
[2018-03-07] MEDS: ENOXAPARIN 40 MG/0.4 ML SQ SCH ×2 (09:00→09:24)
[2018-03-07] MEDS ORDERED: MAGNESIUM SULFATE 1 gm IVPB 1 GM/100 ML BAG IV ONE (09:00)
[2018-03-07] MEDS: FUROSEMIDE 40 MG TABLET PO SCH ×2 (09:23→17:12)
[2018-03-07] MEDS: FERROUS SULFATE 325 MG TAB PO SCH ×2 (09:23→21:01)
[2018-03-07] MEDS: PANTOPRAZOLE 40 MG INJ IVP SCH (09:24)
[2018-03-07] MEDS: SPIRONOLACTONE 25 MG TABLET PO SCH (09:24)
--- NOTE | 2018-03-07 10:27 | P.PN ---
Subjective Date of Service: 03/07/18 Primary Care Provider: None Chief Complaint: Pleural effusion and cirrhosis Subjective: Doing well Physical Examination - Vital Signs Temperature: 97.7 F Blood Pressure: 116/56 Pulse: 76 Respirations: 12 Pulse Ox (%): 94 - Physical Exam General: Alert, In no apparent distress, Oriented x3, Cooperative HEENT: Atraumatic Neck: Supple Respiratory: Other (Better air movement bilaterally especially on the right side.) Cardiovascular: Normal pulses, Regular rate/rhythm Gastrointestinal: Normal bowel sounds, Soft and benign, Non-distended, No tenderness, No masses, No rebound, No guarding, Ascites (Mild) Musculoskeletal: No erythema, No tenderness, No warmth Integumentary: No erythema, No warmth, No cyanosis, Tenderness/swelling (No significant pitting edema noted to the lower extremities bilateral) Neurological: Normal speech, Normal strength at 5/5 x4 extr, Normal tone, Normal affect - Studies Medications List Reviewed: Yes Assessment & Plan - Problems (Diagnosis) (1) Anemia Onset Date: 03/02/18 Current Visit: Yes Status: Acute Plan: Patient with severe anemia. Patient has received a total of 5 units. Hemoglobin remained stable. Patient started on iron supplementation. GI plans for EGD tomorrow to further evaluate. Chest tube removed yesterday. No further intervention needed. Likely discharge tomorrow after EGD. I will turn the service over to Dr. Burger tomorrow. I will go over the plan of care with her. 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 Patient will need follow up and close treatment. Patient on diuretic therapy. PPI will need to be continued. Qualifiers: Anemia type: other cause (2) Cirrhosis Onset Date: 03/02/18 Current Visit: Yes Status: Acute Plan: Hepatitis panel positive for hepatitis-C. Patient will need further evaluation and treatment by GI as an outpatient. Lasix and Aldactone started. Fluid restriction to be continued. Qualifiers: Ascites presence: with ascites (3) Shortness of breath Onset Date: 03/02/18 Current Visit: Yes Status: Acute Plan: Chest tube removed yesterday. Will follow up chest x-ray today. (4) Pleural effusion Onset Date: 03/02/18 Current Visit: Yes Status: Acute Plan: Continue as above. Chest tube removed yesterday. Patient doing well this time. No complaints noted. (5) CHF (congestive heart failure) Onset Date: 03/02/18 Current Visit: Yes Status: Suspected Plan: Ejection fraction 81%. Patient may have a small component of diastolic dysfunction congestive heart failure. Continue with Lasix and Aldactone. Patient will require fluid restriction. Qualifiers: Heart failure type: systolic Heart failure chronicity: acute on chronic Qualified Code(s): I50.23 - Acute on chronic systolic (congestive) heart failure (6) Adrenal mass Onset Date: 03/02/18 Current Visit: Yes Status: Acute Plan: MRI adrenal protocol done. 35 mm left adrenal mass noted. Likely adenoma. No intervention needed at this time. Recommendation to recheck ultrasound in 3-6 months to monitor stability. (7) Inguinal hernia Onset Date: 03/02/18 Current Visit: Yes Status: Chronic Plan: Large right-sided inguinal hernia. No heavy lifting, pushing or pulling. This can be addressed by surgery as an outpatient. Qualifiers: Obstruction and gangrene presence: without obstruction or gangrene Laterality: unilateral (8) Ascites Onset Date: 03/02/18 Current Visit: Yes Status: Acute Plan: Likely from his cirrhosis. Original CT scan showed small amount of ascites. Will continue to monitor closely. Overall stable. No need for paracentesis. Qualifiers: Ascites type: other type Qualified Code(s): R18.8 - Other ascites (9) GERD (gastroesophageal reflux disease) Current Visit: Yes Status: Suspected Plan: Will continue with PPI. GI plans for EGD tomorrow. Qualifiers: Esophagitis presence: with esophagitis Qualified Code(s): K21.0 - Gastro- esophageal reflux disease with esophagitis (10) History of melena Current Visit: Yes Status: Acute Plan: Patient had reported some melena several weeks ago. Continue as above (11) Hepatitis C Current Visit: Yes Status: Acute Plan: New diagnosis of hepatitis-C. Education addressed in detail. GI will follow up with patient as an outpatient to further address and treat. Qualifiers: Viral hepatitis chronicity: chronic Hepatic coma status: without hepatic coma Qualified Code(s): B18.2 - Chronic viral hepatitis C (12) Status post chest tube placement Current Visit: Yes Status: Acute Plan: Chest tube removed yesterday. Patient doing well this time. Follow up chest x- ray today. Discharge Plan: Home Plan to discharge in: 24 Hours - Code Status/Comfort Care Code Status Assessed: Yes (Patient full code) Time Spent Managing Pts Care (In Minutes): 55
[2018-03-07] MEDS: BENZONATATE 100 MG CAP PO PRN ×2 (10:52→21:45)
--- NOTE | 2018-03-07 12:14 | RAD REPORT ---
EXAM DESCRIPTION: RAD - Chest Single View - 03/07/2018 6:36 am CLINICAL HISTORY: Right Effusion / chest tube Chest pain. COMPARISON: Chest Single View dated 03/06/2018; Chest Single View dated 03/06/2018; Chest Single View dated 03/06/2018; Chest Single View dated 03/04/2018 FINDINGS: Portable technique limits examination quality. Subsegmental atelectasis is present in the right base. Elevated right hemidiaphragm is again noted. N o measurable pneumothorax seen. The left lung is clear. The heart is normal in size.
[2018-03-07] MEDS ORDERED: HYDROCODONE/CHLORPHEN 5 ML/OSYR PO PRN (16:06)
[2018-03-08 05:35] LABS: BUN Blood Urea Nitrogen 12 mg/dL (7-18); Bicarbonate 32 mmol/L (21-32); Glucose Level 92 mg/dL (74-106); Magnesium 1.9 mg/dL (1.8-2.4); Potassium 3.5 mmol/L (3.5-5.1); Sodium Level 141 mmol/L (136-145)
--- NOTE | 2018-03-08 07:20 | RAD REPORT ---
EXAM DESCRIPTION: RAD - Chest Single View - 03/08/2018 6:34 am CLINICAL HISTORY: Pleural effusion treatment, chest tube removal COMPARISON: March 07 TECHNIQUE: AP portable chest image was obtained 0621 hours . FINDINGS: There remains no identifiable pneumothorax on this examination. Very minimal right costoph renic angle blunting is present. Right hemidiaphragm remains elevated. No new or progressive lung par enchymal or pleural process. Heart size is normal. IMPRESSION: There remains no identifiable pneumothorax. No new or progressive finding.
[2018-03-08] MEDS ORDERED: KCL 20 MEQ/100 mL IVPB 20 MEQ/100 ML BAG IV SCH (08:00)
[2018-03-08] MEDS: FUROSEMIDE 40 MG TABLET PO SCH (09:00)
[2018-03-08] MEDS: ENOXAPARIN 40 MG/0.4 ML SQ SCH (09:00)
[2018-03-08] MEDS: SPIRONOLACTONE 25 MG TABLET PO SCH (09:00)
[2018-03-08] MEDS: FERROUS SULFATE 325 MG TAB PO SCH (09:00)
[2018-03-08] MEDS: PANTOPRAZOLE 40 MG INJ IVP SCH (09:00)
[2018-03-08] MEDS ORDERED: Ringers Lactate 1,000 ML IV ONE (12:29)
[2018-03-08] MEDS ORDERED: PROPOFOL 200 MG/20 ML VIAL IV ONE (13:17)
[2018-03-08] MEDS ORDERED: LIDOCAINE 1% MPF 2 ML AMPULE ONE (13:17)
[2018-03-08 14:18] VITALS: O2SAT 96
--- NOTE | 2018-03-08 16:18 | P.DS ---
Admission Date: 03/01/18 Discharge Date: 03/08/18 Primary Care Provider: None Disposition: ROUTINE DISCHARGE Discharge Condition: GOOD Reason for Admission: Pleural effusion and cirrhosis Consultations: GI - Dr Titus Pulmonology - Dr Linares Surgery - Dr Kunz Procedures: Chest tube Insertion and Removal EGD - Grade 2 Varises and Nonbleeding ulcer - Problems (1) Anemia Onset Date: 03/02/18 Current Visit: Yes Status: Acute Qualifiers: Anemia type: iron deficiency Iron deficiency anemia type: chronic blood loss Qualified Code(s): D50.0 - Iron deficiency anemia secondary to blood loss (chronic) (2) Hepatitis C Current Visit: Yes Status: Acute Qualifiers: Viral hepatitis chronicity: chronic Hepatic coma status: without hepatic coma Qualified Code(s): B18.2 - Chronic viral hepatitis C (3) Cirrhosis Onset Date: 03/02/18 Current Visit: Yes Status: Acute Qualifiers: Hepatic cirrhosis type: unspecified hepatic cirrhosis Ascites presence: with ascites Qualified Code(s): K74.60 - Unspecified cirrhosis of liver; R18.8 - Other ascites (4) Ascites Onset Date: 03/02/18 Current Visit: Yes Status: Acute Qualifiers: Ascites type: other type Qualified Code(s): R18.8 - Other ascites (5) Shortness of breath Onset Date: 03/02/18 Current Visit: Yes Status: Resolved (6) Pleural effusion Onset Date: 03/02/18 Current Visit: Yes Status: Resolved (7) Adrenal mass Onset Date: 03/02/18 Current Visit: Yes Status: Acute (8) Inguinal hernia Onset Date: 03/02/18 Current Visit: Yes Status: Chronic Qualifiers: Obstruction and gangrene presence: without obstruction or gangrene Laterality: unilateral (9) GERD (gastroesophageal reflux disease) Current Visit: Yes Status: Chronic Qualifiers: Esophagitis presence: with esophagitis Qualified Code(s): K21.0 - Gastro- esophageal reflux disease with esophagitis Brief History of Present Illness: 62-year-old male presented emergency room with shortness of breath and edema to the lower extremities. Symptoms have been present for over 1 month. Shortness of breath has been getting worse over the last 2 weeks. Patient denies any melena, rectal bleeding, nausea or vomiting. He has been reporting a mild cough. Patient reports some heartburn. He usually is relieved on occasion. In the ER the patient had anasarca. Edema to the lower extremities was impressive. On lab he was found to have a hemoglobin of 4.1, white count 3.5, sodium 134 come potassium 4.1. Creatinine 1.2 with a GFR 61. Direct bilirubin 0.3. AST 58, ALT 60. BNP 128, troponin less than 0.02. Chest x-ray showed a large right pleural effusion per on CT, it showed a large right pleural effusion. Large right-sided inguinal hernia was also noted. Cirrhosis of the liver was noted. A 30 mm left adrenal mass was present. Due to nature the findings the patient was admitted for further evaluation. When I saw the patient ER, he appeared pale. He did not appear in any respiratory distress on a nasal cannula. Patient denies any significant history of past medical problems. 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 It is been many many years since he has use any drugs. He does not smoke, he does not drink. No family history of medical problems. Hospital Course: Overall during the hospital stay patient remained stable Patient was initially admitted to the hospital for respiratory distress most likely secondary to multifactorial reasons. Patient was found to have large left-sided pleural effusion, blood-loss anemia, and large ascites. Patient was admitted to the hospital for volume overload causing his respiratory distress along blood-loss anemia. Patient was found to have a hepatitis-C here in the hospital which was causing his liver cirrhosis and large ascites. Patient used to be the patient alcoholic drinker in the past however stated that he has not had anything to drink since past 20 years however did abuse IV drugs 10 years ago. Patient currently is not getting any treatment for hepatitis-C as it is a new diagnosis here in the hospital. Patient was found to have liver cirrhosis as well along with large ascites. Patient was started on Lasix and spironolactone which helped with his symptoms markedly here in the hospital. Patient was diuresed adequately and on discharge was given prescription for Lasix and spironolactone. Patient is child merino for final score were elevated with increase in mobility and mortality in next 6 months. For patient's purulent effusion surgery was consulted. Patient had a large chest tube placed in the left side and. Initially patient had chest tube to the wall suctioning however because of improvement in the pleural effusion and adequate drainage was changed to water seal and eventually was discontinued once his pleural effusion had resolved and his respiratory distress has also resolved. The patient did not have any other complications from the chest tube and did well overall. For patient's blood-loss anemia patient's initial hemoglobin was 12.1 and was transfused 5 units here in the hospital. Patient's anemia was most likely secondary to chronic blood loss given the chronicity of his symptoms. GI was consulted. Patient had an EGD done here in the hospital which was consistent with nonbleeding ulcer along with grade 2 varices. Initially patient was started on Protonix IV which helped heal the ulcer. Patient was then recommended to be discharged home on Protonix b.i.d. along with propanolol for grade 2 varices. Patient was discharged home under stable condition was asked to follow up with the primary care doctor along with GI specialist to monitor his hepatitis-C and other comorbid condition. Vital Signs/Physical Exam: Temp Pulse Resp BP Pulse Ox 97.7 F 77 16 124/64 98 03/08/18 14:15 03/08/18 14:15 03/08/18 14:15 03/08/18 14:15 03/08/18 12:00 General: Alert, In no apparent distress HEENT: Atraumatic, PERRLA, EOMI Neck: Supple, JVD not distended Respiratory: Clear to auscultation bilaterally, Normal air movement Cardiovascular: Regular rate/rhythm, Normal S1 S2 Gastrointestinal: Normal bowel sounds, No tenderness Musculoskeletal: No tenderness Integumentary: No rashes Neurological: Normal speech, Normal tone, Normal affect Lymphatics: No axilla or inguinal lymphadenopathy Laboratory Data at Discharge: WBC 3.2 K/uL (4.3-10.9) L 03/06/18 04:46 Hgb 8.7 g/dL (13.6-17.9) L 03/06/18 04:46 Hct 28.1 % (39.6-49.0) L 03/06/18 04:46 Plt Count 93 K/uL (152-406) L 03/06/18 04:46 PT 15.6 SECONDS (9.5-12.5) H 03/03/18 11:30 INR 1.32 03/03/18 11:30 Sodium 141 mmol/L (136-145) 03/08/18 04:45 Potassium 3.5 mmol/L (3.5-5.1) 03/08/18 04:45 BUN 12 mg/dL (7-18) 03/08/18 04:45 Creatinine 0.80 mg/dL (0.55-1.3) 03/08/18 04:45 Glucose 92 mg/dL (74-106) 03/08/18 04:45 Magnesium 1.9 mg/dL (1.8-2.4) 03/08/18 04:45 Total Bilirubin 0.8 mg/dL (0.2-1.0) 03/06/18 04:46 AST 44 U/L (15-37) H 03/06/18 04:46 ALT 46 U/L (12-78) 03/06/18 04:46 Alkaline Phosphatase 99 U/L (45-117) 03/06/18 04:46 Triglycerides 41 mg/dL (<150) 03/02/18 05:17 Cholesterol 83 mg/dL (<200) 03/02/18 05:17 HDL Cholesterol 33 mg/dL (40-60) L 03/02/18 05:17 Cholesterol/HDL Ratio 2.52 03/02/18 05:17 Home Medications: Ferrous Sulfate [Ferrous Sulfate*] 325 mg PO BID #60 tab 03/08/18 Furosemide [Lasix*] 40 mg PO BIDL #60 tab 03/08/18 Propranolol HCl 10 mg PO TID #90 tablet 03/08/18 Spironolactone [Aldactone*] 25 mg PO DAILY #30 tab 03/08/18 New Medications: Ferrous Sulfate [Ferrous Sulfate*] 325 mg PO BID #60 tab Furosemide [Lasix*] 40 mg PO BIDL #60 tab Propranolol HCl 10 mg PO TID #90 tablet Spironolactone [Aldactone*] 25 mg PO DAILY #30 tab Diet: Regular Activity: Ad senthil Followup: Eusebio Kimble MD [Primary Care Provider] - 1 Week Frantz Cruz MD [ACTIVE - CAN ADMIT] - 1 Week
[2018-03-08 17:31] VITALS: BP 112/55; TEMP 98
--- NOTE | 2018-03-08 19:39 | OP ---
Surgeon: Frantz Cruz MD Procedure To Be Performed: Esophagogastroduodenoscopy. Indication For Procedure: Upper GI bleed. Plan For Anesthesia: Monitored anesthesia care. Complexity: High due to patient's overall condition. Technique: After obtaining informed consent from the patient explaining risks and complications, whi ch include but are not limited to bleeding, infection, perforation, and anesthesia complication. The patient was placed in left lateral position and sedation was given. Subsequently, the scope was adv anced into the mouth and carefully guided up till the second portion of the duodenum. There was no e vidence of active bleeding, however, cause of recent bleeding was identified. After completion of ex amination, the scope and equipment were withdrawn and procedure terminated in a safe manner. Findings: Esophagus, no gross lesion in upper and mid esophagus, however, in the distal esophagus, g rade 2-3 varices were seen. This, however, is cleaned and there were no high-risk stigmata or stigma ta of recent bleeding. No intervention was done to these varices. Stomach, mild diffuse portal hype rtensive gastropathy seen. Biopsies taken in the antrum. Three crated gastric ulcers were seen, how ever, these were already appeared to be in the stages of healing, probable source of bleeding in the duodenum. The bulb revealed duodenitis as well as in the junction between the bulb and second portio n there was a linear ulcer, which was also in the stage of healing. Gastric ulcer biopsies were take n. Complications, none. Tolerance to anesthesia excellent. Postoperative Diagnoses: Gastric and duodenal ulcers, esophageal varices, portal hypertensive gastro cris. Plan: 1.Await pathology results. 2.Oral PPI twice a day. 3.Start the patient on low-dose beta-rudolph and the followup in the GI clinic. We will start and t itrate according to heart rate. We will need repeat EGD in 6 weeks' time. Based on findings, we gonzalez l decide if banding is needed or not. Also, he may need a colonoscopy as an outpatient depending on his overall health with which he will be decided on followup. He can be discharged today and follow up with us within 1-2 weeks. US/MICKY Voice ID: [id number] Report ID: [id number]
== END 2018-03-08 16:25 | disposition home or self-care (01) | DRG 186 ==
LOC: ER 15:23 → ERHOLD 17:56 → 2ND 21:05
PROVIDERS: ADMIT Family Medicine; ATTEND Family Medicine
PROC: 0W9900Z Drainage of Right Pleural Cavity with Drainage Device, Open Approach (ICD-10-PCS; principal; 2018-03-04)
PROC: 0DB98ZX Excision of Duodenum, Via Natural or Artificial Opening Endoscopic, Diagnostic (ICD-10-PCS; 2018-03-08)
PROC: 0DB68ZX Excision of Stomach, Via Natural or Artificial Opening Endoscopic, Diagnostic (ICD-10-PCS; 2018-03-08)
DX: J90 Pleural effusion, not elsewhere classified (principal); I50.23 Acute on chronic systolic (congestive) heart failure; K26.4 Chronic or unspecified duodenal ulcer with hemorrhage; R18.8 Other ascites; I85.10 Secondary esophageal varices without bleeding; K76.6 Portal hypertension; B17.10 Acute hepatitis C without hepatic coma; R06.03 Acute respiratory distress; K74.60 Unspecified cirrhosis of liver; E27.8 Other specified disorders of adrenal gland; K40.90 Unilateral inguinal hernia, without obstruction or gangrene, not specified as recurrent; K21.9 Gastro-esophageal reflux disease without esophagitis; K25.9 Gastric ulcer, unspecified as acute or chronic, without hemorrhage or perforation; K31.89 Other diseases of stomach and duodenum; K29.80 Duodenitis without bleeding; D50.0 Iron deficiency anemia secondary to blood loss (chronic)
CPT/HCPCS: 36415; 71035; 71045; 71046; 71260; 74177; 74183; 76700; 80048; 80053; 80061; 80074; 80076; 81003; 82274; 82607; 82728; 82962; 83540; 83735; 83880; 84439; 84443; 84466; 84484; 85014; 85018; 85025; 85610; 86850; 86900; 86901; 87015; 87102; 87116; 87206; 87389; 87522; 88305; 88312; 89050; 93005; 93306; 99285; A9577; C9113; J1650; J1940; J2001; J2270; J2405; J3475; P9016; Q9967

== ENCOUNTER 2019-10-29 13:44 | Emergency (ER) | payer OTHER ==
[2019-10-29 16:14] LABS: Absolute Lymphocytes (CBC) 0.8 K/uL (0.7-4.9); Basophils % 0.6 % (0-1.3); Hematocrit 39.1 % (39.6-49.0); Lymphocytes % 8.8 % (15.3-44.8); MPV 9.3 fL (7.6-11.3); RBC Red Blood Cell Count 4.53 M/uL (4.33-5.43)
[2019-10-29] MEDS ORDERED: NA CHLORIDE 0.9% 1,000 ML ONE (16:14)
[2019-10-29 16:32] LABS: Albumin 3.1 g/dL (3.4-5.0); Bilirubin Direct 0.6 mg/dL (0-0.2); Bilirubin Total 1.9 mg/dL (0.2-1.0); Potassium 3.5 mmol/L (3.5-5.1); Protein, Total 7.2 g/dL (6.4-8.2)
[2019-10-29 16:58] LABS: Blood Morphology Comment NOT SEEN (NOT SEEN); Platelet Estimate DECR; Urine White Blood Cell Casts OK
--- NOTE | 2019-10-29 17:41 | RAD REPORT ---
EXAM DESCRIPTION: CT - Abdomen Pelvis W Contrast - 10/29/2019 5:27 pm CLINICAL HISTORY: dysuria, flank pain COMPARISON: No comparisons TECHNIQUE: Biphasic, helical CT imaging of the abdomen and pelvis was performed following 100 ml non -ionic IV contrast. No oral contrast given. All CT scans are performed using dose optimization technique as appropriate and may include automated exposure control or mA/KV adjustment according to patient size. FINDINGS: No suspicious findings in the lung bases. Liver shows a nodular contour with a prominent left lobe. No suspicious liver lesions seen. A 2.2 cassy timeter cyst is present in the superior right lobe. No worrisome liver lesion. Splenomegaly is presen t to 17 cm. No focal splenic lesion. No focal pancreatic mass or peripancreatic stranding. Gallbladde r and biliary tree are also without suspicious finding. Gallstones can be occult on CT imaging. No bi liary tree dilatation. Symmetric renal function is seen with no hydronephrosis or suspicious renal mass. No pyelonephritis o r acute parenchymal process. Small nonobstructing calculi are present. No acute urinary bladder findi ng. A 3.9 centimeter low-attenuation left adrenal mass is present. No right adrenal abnormality. No gastric dilatation or wall thickening. No dilated large or small bowel loops. Several small bowel loops are prominent. This is not a bowel obstruction pattern at this time. Appendix is normal. No sharif e air or pneumatosis. Patient has a very large right inguinal hernia extending into the scrotum. Thi s is 12 cm in diameter and contains multiple loops of small bowel. No acute findings seen. A much sma ller fat only left inguinal hernia is present. Bladder extends to the origin of the hernia but does n ot extend into it. Patient has periumbilical hernia with a mild amount of congestion or edema. Promin ent vessels extend into the hernia defect. Multiple upper abdominal varices are present near the GE junction and in the splenic hilum. Multiple periaortic prominent varices are seen. There are numerous small nonspecific periaortic lymph nodes. Disc and bony degenerative changes are present. No pathologic bone process or acute fracture. L5-S1 f oraminal stenosis changes are present. No acute vascular finding. IMPRESSION: No obstruction, free air or surgically emergent finding identified. Cirrhotic changes to the liver are evident with splenomegaly and prominent upper abdominal varices. No ascites. No failure or volume overload findings. A 3.5 centimeter periumbilical hernia is present containing fat and prominent umbilical veins. Ther e is a mild congestion or edema to the fat. Correlation is needed with any periumbilical pain symptom s. Very large right inguinal hernia 12 cm in diameter containing multiple loops of small bowel. No acute component identified. Prominent small bowel loops in the right mid abdomen. This is favored to be ileus or enteritis. Obstr uction is not suspected at this time. A 3.9 centimeter low-attenuation left adrenal mass is present likely an adenoma. This does not meet s trict CT criteria.
[2019-10-29 19:41] LABS: Urine Bacteria LOADED /HPF (NONE SEEN); Urine Culture Reflex Order REFLEXED; Urine RBC <5 /HPF (NONE SEEN)
--- NOTE | 2019-10-29 19:50 | ER ---
Nurse's Notes [facility] Name: Rich Montana Age: 63 yrs Sex: Male : 1955 Arrival Date: 10/29/2019 Time: 13:46 Bed 5 Private MD: Diagnosis: Urinary tract infection, site not specified Presentation: 10/29 14:12 Presenting complaint: Patient states: "I've been having pain in my low back and fever aj1 since and my pee has been real yellow" Denies dysuria, urinary frequency. Transition of care: patient was not received from another setting of care. Onset of symptoms was October 2019. Risk Assessment: Do you want to hurt yourself or someone else? Patient reports no desire to harm self or others. Initial Sepsis Screen: Does the patient meet any 2 criteria? No. Patient's initial sepsis screen is negative. Does the patient have a suspected source of infection? Yes: Dysuria/Frequency/Urgency/UTI. Care prior to arrival: None. 14:12 Method Of Arrival: Ambulatory aj 14:12 Acuity: SIGIFREDO 3 aj1 Triage Assessment: 14:16 General: Appears in no apparent distress. comfortable, Behavior is calm, cooperative, aj1 appropriate for age. Pain: Complains of pain in low back area. Neuro: Level of Consciousness is awake, alert, obeys commands. Cardiovascular: Patient's skin is warm and dry. Respiratory: Airway is patent Respiratory effort is even, unlabored, Respiratory pattern is regular, symmetrical. Historical: - Allergies: 14:16 Codeine; aj1 14:16 acromycin; aj1 - Home Meds: 14:16 spironolactone 25 mg Oral tab 1 tab once daily [Active]; propranolol 10 mg Oral tab 1 aj1 tab twice daily [Active]; furosemide 40 mg Oral tab 1 tab once daily [Active]; pantoprazole 40 mg oral TbEC 1 tab once daily [Active]; - PMHx: 14:16 GERD; Cirrhosis; aj1 - Immunization history:: Flu vaccine is not up to date. - Coronavirus screen:: The patient has NOT traveled to [place] in the past 14 days. - Social history:: Smoking status: Patient/guardian denies using tobacco. - Ebola Screening: : Patient denies travel to an Ebola-affected area in the 21 days before illness onset. Screenin:00 Abuse screen: Denies threats or abuse. Denies injuries from another. Nutritional bp screening: No deficits noted. Tuberculosis screening: No symptoms or risk factors identified. Fall Risk None identified. Assessment: 14:30 General: SEE TRIAGE NOTE. bp 16:00 Reassessment: PIV IN PLACE AND INFUSING IVF. CT PENDING. NO ACUTE S/S AT THIS TIME. bp 17:22 Reassessment: PT RETURNED FROM RADIOLOGY. NO ACUTE DISTRESS AT THIS TIME. bp 18:39 Reassessment: ALL CURRENT ORDERS COMPLETED, RAD RESULTS PENDING. NO S/S ACUTE DISTRESS bp AT THIS TIME. 19:10 Reassessment: Patient appears in no apparent distress at this time. Patient and/or jb4 family updated on plan of care and expected duration. Pain level reassessed. Patient is alert, oriented x 3, equal unlabored respirations, skin warm/dry/pink. 20:19 Reassessment: Patient appears in no apparent distress at this time. Patient and/or jb4 family updated on plan of care and expected duration. Pain level reassessed. Patient is alert, oriented x 3, equal unlabored respirations, skin warm/dry/pink. Temp noted to have oral temp of 100.6, pt refused tylenol and motrin stating " I will take some at home", provider notified. Pt and verbalized understanding of d/c and follow up instructions. Assisted to Vehicle via wheelchair. Denies questions or concerns. Vital Signs: 14:16 BP 122 / 70; Pulse 70; Resp 18; Temp 98.9; Pulse Ox 100% on R/A; Weight 83.91 kg (R); aj1 Height 5 ft. 8 in. (172.72 cm) (R); Pain 7/10; 16:00 BP 117 / 71; Pulse 68; Resp 16; Pulse Ox 98% ; bp 17:22 BP 127 / 74; Pulse 67; Resp 16; Pulse Ox 98% ; bp 18:35 BP 123 / 73; Pulse 70; Resp 16; Pulse Ox 98% ; bp 19:30 BP 135 / 77; Pulse 74; Resp 18; Pulse Ox 98% on R/A; jb4 20:00 BP 131 / 70; Pulse 73; Resp 16; Temp 100.6(O); Pulse Ox 98% on R/A; jb4 14:16 Body Mass Index 28.13 (83.91 kg, 172.72 cm) aj1 ED Course: 13:46 Patient arrived in ED. as 14:13 Triage completed. aj1 14:16 Arm band placed on Patient placed in waiting room, Patient notified of wait time. aj1 15:32 Aston Curry NP is PHCP. pm1 15:32 Radhames Vu MD is Attending Physician. pm1 15:40 Urine collected: clean catch specimen, cloudy, tea colored. jb1 16:00 Patient has correct armband on for positive identification. Bed in low position. Call bp light in reach. Side rails up X2. Adult w/ patient. Pulse ox on. NIBP on. 16:01 Ricco Waters, SHAUN is Primary Nurse. bp 16:02 Initial lab(s) drawn, by ar, sent to lab. Inserted saline lock: 20 gauge in right jb1 antecubital area, using aseptic technique. Blood collected. 19:04 Attending Physician role handed off by Radhames Vu MD [facility] 19:04 Anoop Conteh MD is Attending Physician. [facility] 20:22 No provider procedures requiring assistance completed. IV discontinued, intact, jb4 bleeding controlled, No redness/swelling at site. Pressure dressing applied. Administered Medications: 16:05 Drug: NS 0.9% 1000 ml Route: IV; Rate: 1000 ml; Site: right antecubital; bp 19:30 Follow up: Response: No adverse reaction; IV Status: Completed infusion; IV Intake: jb4 1000ml 19:55 Drug: Rocephin 1 grams Route: IV; Rate: calculated rate; Site: right antecubital; jb4 20:00 Follow up: Response: No adverse reaction; IV Status: Completed infusion; IV Intake: [id number] Intake: 19:30 IV: 1000ml; Total: 1000ml. jb4 20:00 IV: 10ml; Total: 1010ml. jb4 Outcome: 19:48 Discharge ordered by . pm1 20:22 Discharged to home via wheelchair, with family. jb4 20:22 Condition: stable 20:22 Discharge instructions given to patient, family, Instructed on discharge instructions, follow up and referral plans. medication usage, Demonstrated understanding of instructions, follow-up care, medications, Prescriptions given X 2. 20:23 Patient left the ED. jb4 Addendum: 11/02/2019 07:28 Addendum: Culture Results: Positive urine culture. No further action required. Bacteria i w sensitive to prescribed antibiotic. Signatures: Matthew Raymundo jb1 Jacquie Andujar, SHAUN RN aj1 Anoop Conteh MD MD cha Martinez, Amelia as Williams, Irene, RN RN iw Aston Curry, JOSEPHINE [employer]GR[employer] OPERATOR pm1 Vasile Adam RN RN jb4 Ricco Waters RN RN bp
--- NOTE | 2019-10-29 19:51 | EDPHYS ---
Physician Documentation [facility] Name: Rich Montana Age: 63 yrs Sex: Male : 1955 Arrival Date: 10/29/2019 Time: 13:46 Bed 5 Private MD: ED Physician Anoop Conteh HPI: 10/29 15:49 This 63 yrs old Male presents to ER via Ambulatory with complaints of Fever, pm1 Low Back Pain. 15:49 The patient presents with pain that is acute, with no known mechanism of injury. The pm1 symptoms are located in the low back. The pain does not radiate. The problem was sustained without known cause, darkened urine. Onset: The symptoms/episode began/occurred 2 day(s) ago. Modifying factors: The patient symptoms are alleviated by nothing, the patient symptoms are aggravated by nothing. Associated signs and symptoms: Pertinent positives: fever, Pertinent negatives: abdominal pain, headache, numbness, tingling, vomiting. Severity of symptoms: in the emergency department the symptoms are unchanged. The patient has not experienced similar symptoms in the past. The patient has not recently seen a physician. Historical: - Allergies: 14:16 Codeine; aj1 14:16 acromycin; aj1 - Home Meds: 14:16 spironolactone 25 mg Oral tab 1 tab once daily [Active]; propranolol 10 mg Oral tab 1 aj1 tab twice daily [Active]; furosemide 40 mg Oral tab 1 tab once daily [Active]; pantoprazole 40 mg oral TbEC 1 tab once daily [Active]; - PMHx: 14:16 GERD; Cirrhosis; aj1 - Immunization history:: Flu vaccine is not up to date. - Coronavirus screen:: The patient has NOT traveled to [place] in the past 14 days. - Social history:: Smoking status: Patient/guardian denies using tobacco. - Ebola Screening: : Patient denies travel to an Ebola-affected area in the 21 days before illness onset. ROS: 15:49 Cardiovascular: Negative for chest pain, palpitations, and edema, Respiratory: Negative pm1 for shortness of breath, cough, wheezing, and pleuritic chest pain, Abdomen/GI: Negative for abdominal pain, nausea, vomiting, diarrhea, and constipation. 15:49 MS/Extremity: Negative for injury and deformity, Skin: Negative for injury, rash, and discoloration. 15:49 Neuro: Negative for headache, weakness, numbness, tingling, and seizure. 15:49 Constitutional: Positive for fever, Negative for poor PO intake. 15:49 Back: Positive for of the low back area, Pain. 15:49 : Positive for flank pain, darkened urine. 15:49 All other systems are negative. Exam: 15:49 Constitutional: This is a well developed, well nourished patient who is awake, alert, pm1 and in no acute distress. Head/Face: Normocephalic, atraumatic. Neck: Trachea midline, no thyromegaly or masses palpated, and no cervical lymphadenopathy. Supple, full range of motion without nuchal rigidity, or vertebral point tenderness. No Meningismus. Chest/axilla: Normal chest wall appearance and motion. Nontender with no deformity. No lesions are appreciated. Cardiovascular: Regular rate and rhythm with a normal S1 and S2. No gallops, murmurs, or rubs. Normal PMI, no JVD. No pulse deficits. Respiratory: Lungs have equal breath sounds bilaterally, clear to auscultation and percussion. No rales, rhonchi or wheezes noted. No increased work of breathing, no retractions or nasal flaring. Abdomen/GI: Soft, non-tender, with normal bowel sounds. No distension or tympany. No guarding or rebound. No evidence of tenderness throughout. 15:49 Skin: Warm, dry with normal turgor. Normal color with no rashes, no lesions, and no evidence of cellulitis. MS/ Extremity: Pulses equal, no cyanosis. Neurovascular intact. Full, normal range of motion. 15:49 Back: normal spinal alignment noted, vertebral tenderness, is not appreciated. 15:49 Neuro: Orientation: is normal, Motor: is normal, moves all fours. Vital Signs: 14:16 BP 122 / 70; Pulse 70; Resp 18; Temp 98.9; Pulse Ox 100% on R/A; Weight 83.91 kg (R); aj1 Height 5 ft. 8 in. (172.72 cm) (R); Pain 7/10; 16:00 BP 117 / 71; Pulse 68; Resp 16; Pulse Ox 98% ; bp 17:22 BP 127 / 74; Pulse 67; Resp 16; Pulse Ox 98% ; bp 18:35 BP 123 / 73; Pulse 70; Resp 16; Pulse Ox 98% ; bp 19:30 BP 135 / 77; Pulse 74; Resp 18; Pulse Ox 98% on R/A; jb4 20:00 BP 131 / 70; Pulse 73; Resp 16; Temp 100.6(O); Pulse Ox 98% on R/A; jb4 14:16 Body Mass Index 28.13 (83.91 kg, 172.72 cm) [facility] MDM: 15:49 Patient medically screened. pm1 19:47 Data reviewed: vital signs. Data interpreted: Pulse oximetry: on room air is 98 %. pm1 Interpretation: normal. Counseling: I had a detailed discussion with the patient and/or guardian regarding: the historical points, exam findings, and any diagnostic results supporting the discharge/admit diagnosis, lab results, radiology results, the need for outpatient follow up, to return to the emergency department if symptoms worsen or persist or if there are any questions or concerns that arise at home. 10/29 15:40 Order name: Basic Metabolic Panel 1 10/29 15:40 Order name: CBC with Diff 10/29 15:40 Order name: Creatinine for Radiology 1 10/29 15:40 Order name: Hepatic Function 1 10/29 15:40 Order name: Lipase 1 10/29 15:41 Order name: Urine Microscopic Only [facility] 10/29 15:51 Order name: Urine Dipstick--Ancillary (enter results) ia 10/29 16:33 Order name: Basic Metabolic Panel; Complete Time: 16:34 EDRI 10/29 16:33 Order name: Liver (Hepatic) Function; Complete Time: 16:34 EDRI 10/29 16:33 Order name: Lipase; Complete Time: 16:34 EDMS 10/29 16:34 Order name: Creatinine (Radiology Only); Complete Time: 16:34 EDRI 10/29 16:42 Order name: CBC with Automated Diff; Complete Time: 17:00 EDRI 10/29 16:59 Order name: CBC Smear Scan; Complete Time: 17:00 EDRI 10/29 19:44 Order name: Urine Microscopic Only; Complete Time: 19:47 EDRI 10/29 15:17 Order name: Urine Dipstick-Ancillary (obtain specimen); Complete Time: 15:40 [facility] 10/29 15:17 Order name: CT Stone Protocol aj1 10/29 15:40 Order name: CT Abd/Pelvis - IV Contrast Only pm1 10/29 15:40 Order name: IV Saline Lock; Complete Time: 16:02 pm1 10/29 15:40 Order name: Labs collected and sent; Complete Time: 16:02 pm1 Administered Medications: 16:05 Drug: NS 0.9% 1000 ml Route: IV; Rate: 1000 ml; Site: right antecubital; bp 19:30 Follow up: Response: No adverse reaction; IV Status: Completed infusion; IV Intake: jb4 1000ml 19:55 Drug: Rocephin 1 grams Route: IV; Rate: calculated rate; Site: right antecubital; jb4 20:00 Follow up: Response: No adverse reaction; IV Status: Completed infusion; IV Intake: [id number] Disposition: 10/30 00:01 Co-signature as Attending Physician, Anoop Conteh MD I agree with the assessment and prabhjot plan of care. Disposition: 10/29/19 19:48 Discharged to Home. Impression: Urinary tract infection, site not specified. - Condition is Stable. - Discharge Instructions: Urinary Tract Infection, Adult. - Prescriptions for Macrobid 100 mg Oral Capsule - take 1 capsule by ORAL route every 12 hours for 10 days; 20 capsule. Tramadol 50 mg Oral Tablet - take 1 tablet by ORAL route every 8 hours As needed as needed; 12 tablet. - Medication Reconciliation Form, Thank You Letter, Antibiotic Education, Prescription Opioid Use form. - Follow up: Emergency Department; When: As needed; Reason: Worsening of condition. Follow up: Private Physician; When: 2 - 3 days; Reason: Recheck today's complaints, Continuance of care, Re-evaluation by your physician. - Problem is new. - Symptoms have improved. Signatures: Dispatcher [employer] EDJacquie Mclean RN RN aj1 Anoop Conteh MD MD cha Marinas, Patrick, SKIP MINER SKIP MINER pm1 Vasile Adam RN RN jb4 Ricco Waters RN RN bp Corrections: (The following items were deleted from the chart) 10/29 20:23 19:48 10/29/2019 19:48 Discharged to Home. Impression: Urinary tract infection, site jb4 not specified. Condition is Stable. Forms are Medication Reconciliation Form, Thank You Letter, Antibiotic Education, Prescription Opioid Use. Follow up: Emergency Department; When: As needed; Reason: Worsening of condition. Follow up: Private Physician; When: 2 - 3 days; Reason: Recheck today's complaints, Continuance of care, Re-evaluation by your physician. Problem is new. Symptoms have improved. pm1
[2019-10-29] MEDS ORDERED: CEFTRIAXONE/SWI 1gm 1 GM/10 ML SYR ONE (20:00)
[2019-10-29 20:37] LABS: Urine Blood 2+ (NEG); Urine Glucose NEGATIVE (NEG); Urine Protein NEGATIVE (NEG); Urine Specific Gravity 1.015 (1.005-1.030); Urine pH 5.5 (5.0-7.0)
[2019-10-29 20:41] VITALS: O2SAT 98
[2019-10-29 20:46] VITALS: BP 131/70; TEMP 100.6
== END 2019-10-29 20:23 | disposition home or self-care (01) ==
LOC: ER 13:44
DX: N39.0 Urinary tract infection, site not specified (principal); K21.9 Gastro-esophageal reflux disease without esophagitis; K74.60 Unspecified cirrhosis of liver; Z88.1 Allergy status to other antibiotic agents; Z88.5 Allergy status to narcotic agent
CPT/HCPCS: 96361; 87088; 85025; 87086; 80048; 36415; 80076; 87077; 87186; 83690; 74177; 96374; 99284; Q9967; J0696; J7030; 81003; 81015

== ENCOUNTER 2019-11-12 11:35 | Emergency (ER) | payer OTHER ==
[2019-11-12] MEDS ORDERED: MEPERIDINE HCL 25 MG/0.5 ML ONE (12:15)
[2019-11-12] MEDS ORDERED: dexAMETHasone 10 MG/ML VIAL ONE (12:15)
[2019-11-12 12:16] LABS: Absolute Lymphocytes (CBC) 0.4 K/uL (0.7-4.9); Basophils % 0.4 % (0-1.3); Hematocrit 38.4 % (39.6-49.0); Lymphocytes % 6.1 % (15.3-44.8); MPV 8.4 fL (7.6-11.3); RBC Red Blood Cell Count 4.47 M/uL (4.33-5.43)
[2019-11-12 12:33] LABS: Bilirubin Direct 0.4 mg/dL (0-0.2); Bilirubin Total 1.5 mg/dL (0.2-1.0); Potassium 4.2 mmol/L (3.5-5.1); Protein, Total 8.1 g/dL (6.4-8.2)
--- NOTE | 2019-11-12 12:45 | RAD REPORT ---
EXAM DESCRIPTION: CT - Stone Protocol - 11/12/2019 12:26 pm CLINICAL HISTORY: Abdominal pain. right flank pain COMPARISON: 10/2019 and 02/2018 TECHNIQUE: Computed axial tomography of the abdomen pelvis was obtained without oral or IV contrast. Lack of IV and oral contrast limits evaluation of solid organs, bowel, and vessels. Coronal reformat vivian images were obtained and reviewed. All CT scans are performed using dose optimization technique as appropriate and may include automated exposure control or mA/KV adjustment according to patient size. FINDINGS: Tiny bilateral renal calculi tiny bilateral renal calculi. No hydronephrosis. A ureteral c alculus is not seen. A bladder calculus is not present. Cirrhotic liver. Spleen measures 20 centimeters. Varices are present within the abdomen and paraesoph ageal region. Small hepatic cyst The pancreas and right adrenal gland are unremarkable. 3.7 centimeter left adrenal mass unchanged There is no evidence of diverticulitis. The appendix appears normal. Small left inguinal hernia contains a small portion of the bladder. Large right inguinal hernia contains nondilated small bowel Mild anterior subluxation L5 on S1. Spondylolysis L5 Moderate umbilical hernia contains small amount of fluid. It is unchanged Mild to moderate prostatic enlargement IMPRESSION: Tiny bilateral nonobstructing renal calculi Cirrhosis Large right inguinal hernia containing small bowel
[2019-11-12 13:06] LABS: Urine Bacteria <20 /HPF (NONE SEEN); Urine Culture Reflex Order NOT NEEDED; Urine RBC <5 /HPF (NONE SEEN)
--- NOTE | 2019-11-12 13:18 | EDPHYS ---
Physician Documentation [facility] Name: Rich Montana Age: 63 yrs Sex: Male : 1955 Arrival Date: 11/12/2019 Time: 11:37 Bed 19 Private MD: Frantz Cruz ED Physician Radhames Vu HPI: 11/11 12:05 This 63 yrs old Male presents to ER via Wheelchair with complaints of Back rn Pain. 12:05 The patient presents with pain that is acute. The symptoms are located in the low back. rn Onset: The symptoms/episode began/occurred 3 day(s) ago. The pain does not radiate. Associated signs and symptoms: The patient has no apparent associated signs or symptoms, Pertinent negatives: abdominal pain, fever, hematuria, incontinence, nausea, numbness, tingling, urinary retention, vomiting, weakness. Modifying factors: The patient symptoms are alleviated by remaining still, specific position, the patient symptoms are aggravated by any movement, bending, walking. Severity of symptoms: At their worst the symptoms were moderate, in the emergency department the symptoms are unchanged. The patient has not experienced similar symptoms in the past. Reports right lower back pain, non-radiating, no known trauma but did get on riding lawnmower prior to this. no bowel/bladder issues. no fever. No urinary symptoms. Recently treated for UTI, finished abx, and feels better in terms of that infection. No abd pain. . Historical: - Allergies: 11:54 acromycin; aa5 11:54 Codeine; aa5 - PMHx: 11:54 Cirrhosis; GERD; aa5 - Immunization history:: Adult Immunizations up to date, Pneumococcal vaccine is not up to date, Flu vaccine is not up to date. It has been more than one year since last vaccine. - Family history:: not pertinent. - Social history:: Smoking status: Patient denies any tobacco usage or history of. - Hospitalizations: : No recent hospitalization is reported. ROS: 12:05 Constitutional: Negative for fever, chills, and weight loss, Eyes: Negative for injury, rn pain, redness, and discharge, Neck: Negative for injury, pain, and swelling, Cardiovascular: Negative for chest pain, palpitations, and edema, Respiratory: Negative for shortness of breath, cough, wheezing, and pleuritic chest pain, Abdomen/GI: Negative for abdominal pain, nausea, vomiting, diarrhea, and constipation, Back: + right lower back pain MS/Extremity: Negative for injury and deformity, Skin: Negative for injury, rash, and discoloration, Neuro: Negative for headache, weakness, numbness, tingling, and seizure. Exam: 12:05 Constitutional: This is a well developed, well nourished patient who is awake, alert, rn wheeled to room, laying on left side Head/Face: Normocephalic, atraumatic. Cardiovascular: Regular rate and rhythm. No pulse deficits. Respiratory: No increased work of breathing, no retractions or nasal flaring. Abdomen/GI: soft, + periumbilical hernia, non-tender Back: No spinal tenderness. + tender right lower back, no skin changes or lesions MS/ Extremity: Pulses equal, no cyanosis. Neurovascular intact. Neuro: Awake and alert, GCS 15, oriented to person, place, time, and situation. Motor strength 5/5 in all extremities. Sensory grossly intact. Vital Signs: 11:50 BP 124 / 77; Pulse 73; Resp 16 S; Temp 98.2(O); Pulse Ox 98% on R/A; aa5 13:17 BP 102 / 48; Pulse 68; Resp 15; Pulse Ox 95% on R/A; vc MDM: 11:44 Patient medically screened. rn 13:16 Differential diagnosis: Fatigue Osteoarthritis ruptured disc, spinal injury, sprain, rn radiculopathy, muscle spasm. Data reviewed: vital signs, nurses notes, lab test result(s), radiologic studies, CT scan, and as a result, I will discharge patient. Counseling: I had a detailed discussion with the patient and/or guardian regarding: the historical points, exam findings, and any diagnostic results supporting the discharge/admit diagnosis, lab results, radiology results, the need for outpatient follow up, to return to the emergency department if symptoms worsen or persist or if there are any questions or concerns that arise at home. Response to treatment: the patient's symptoms have markedly improved after treatment, and as a result, I will discharge patient. Special discussion: I discussed with the patient/guardian in detail that at this point there is no indication for admission to the hospital. It is understood, however, that if the symptoms persist or worsen the patient needs to return immediately for re-evaluation. Based on the history and exam findings, there is no indication for further emergent testing or inpatient evaluation. I discussed with the patient/guardian the need to see the back specialist for further evaluation of the symptoms. ED course: Pt improved, no acute findings on CT scan, all results gone over with patient and , handed them results. 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 Will dc home with pcp and back f/u. . 13:22 ED course: [place] score 080/050/200, no active narcotic prescriptions, will dc home rn with tramadol and muscle relaxer. . 11/11 11:54 Order name: Basic Metabolic Panel; Complete Time: 12:46 rn 11/11 11:54 Order name: CBC with Diff; Complete Time: 12:28 rn 11/11 11:54 Order name: Creatinine for Radiology; Complete Time: 12:46 rn 11/11 11:54 Order name: Hepatic Function; Complete Time: 12:46 rn 11/11 11:54 Order name: Lipase; Complete Time: 12:46 rn 11/11 11:54 Order name: Urine Microscopic Only; Complete Time: 13:07 rn 11/11 11:54 Order name: IV Start; Complete Time: 12:15 rn 11/11 11:54 Order name: Labs collected and sent; Complete Time: 12:14 rn 11/11 11:54 Order name: CT Stone Protocol; Complete Time: 12:46 rn 11/11 11:54 Order name: Urine Dipstick-Ancillary (obtain specimen); Complete Time: 12:51 rn 11/11 13:03 Order name: Urine Dipstick--Ancillary (enter results) eb Administered Medications: 12:19 Drug: Decadron - Dexamethasone 10 mg Route: IVP; Site: left forearm; vc 13:00 Follow up: Response: No adverse reaction; Pain is decreased vc 12:20 Drug: Demerol 25 mg Route: IVP; Site: left forearm; vc 13:00 Follow up: Response: No adverse reaction; Pain is decreased vc Disposition: 11/12/19 13:18 Discharged to Home. Impression: Low back pain, Muscle spasm of back, Spondylosis, unspecified. - Condition is Stable. - Discharge Instructions: Back Pain, Adult, Muscle Cramps and Spasms. - Prescriptions for Cyclobenzaprine 10 mg Oral Tablet - take 1 tablet by ORAL route every 8 hours As needed; 20 tablet. Tramadol 50 mg Oral Tablet - take 1 tablet by ORAL route every 8 hours as needed; 20 tablet. Medrol (Donte) 4 mg Oral Tablets, Dose Pack - take 1 tablet by ORAL route as directed - follow package instructions; 1 packet. - Medication Reconciliation Form, Thank You Letter, Antibiotic Education, Prescription Opioid Use form. - Follow up: Private Physician; When: As needed; Reason: Recheck today's complaints, Re-evaluation by your physician. - Problem is new. - Symptoms have improved. Signatures: Dispatcher [employer] EDMS Radhames Vu MD MD rn Calderon, Audri, RN RN aa5 Madelin Guillen RN RN vc Corrections: (The following items were deleted from the chart) 13:33 13:18 11/12/2019 13:18 Discharged to Home. Impression: Low back pain; Muscle spasm of vc back; Spondylosis, unspecified. Condition is Stable. Forms are Medication Reconciliation Form, Thank You Letter, Antibiotic Education, Prescription Opioid Use. Follow up: Private Physician; When: As needed; Reason: Recheck today's complaints, Re-evaluation by your physician. Problem is new. Symptoms have improved. rn
--- NOTE | 2019-11-12 13:18 | ER ---
Nurse's Notes [facility] Name: Rich Montana Age: 63 yrs Sex: Male : 1955 Arrival Date: 11/12/2019 Time: 11:37 Bed 19 Private MD: Frantz Cruz Diagnosis: Low back pain;Muscle spasm of back;Spondylosis, unspecified Presentation: 11/11 11:43 Chief complaint: Patient states: right lower back pain radiating to RLQ. Pt reports he aa5 was seen here approximately 2 weeks ago for a kidney infection and finished antibiotics. 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 11:43 Acuity: SIGIFREDO 3 aa5 11:43 Coronavirus screen: The patient has NOT traveled to a country currently being monitored aa5 by the [facility] within the last 14 days. Ebola Screen: Patient negative for fever greater than or equal to 101.5 degrees Fahrenheit, and additional compatible Ebola Virus Disease symptoms. Risk Assessment: Do you want to hurt yourself or someone else? Patient reports no desire to harm self or others. 11:43 Method Of Arrival: Wheelchair aa 11:50 Initial Sepsis Screen: Does the patient meet any 2 criteria? No. Patient's initial aa5 sepsis screen is negative. Does the patient have a suspected source of infection? No. Patient's initial sepsis screen is negative. 12:28 Onset of symptoms was November 10, 2019. vc Triage Assessment: 12:26 General: Appears in no apparent distress. uncomfortable, Behavior is calm, cooperative, vc appropriate for age. Pain: Complains of pain in low back area, left low back and right low back. Musculoskeletal: Circulation, motion, and sensation intact. Range of motion: intact in all extremities. Historical: - Allergies: 11:54 acromycin; aa5 11:54 Codeine; aa5 - PMHx: 11:54 Cirrhosis; GERD; aa5 - Immunization history:: Adult Immunizations up to date, Pneumococcal vaccine is not up to date, Flu vaccine is not up to date. It has been more than one year since last vaccine. - Family history:: not pertinent. - Social history:: Smoking status: Patient denies any tobacco usage or history of. - Hospitalizations: : No recent hospitalization is reported. Screenin:25 Abuse screen: Denies threats or abuse. Nutritional screening: No deficits noted. vc Tuberculosis screening: No symptoms or risk factors identified. Fall Risk None identified. Assessment: 12:10 General: Appears in no apparent distress. uncomfortable, Behavior is calm, cooperative, vc appropriate for age. Pain: Complains of pain in low back area Pain currently is 10 out of 10 on a pain scale. Neuro: Level of Consciousness is awake, alert, obeys commands, Oriented to person, place, time, situation, Appropriate for age. Cardiovascular: Patient's skin is warm and dry. Respiratory: Airway is patent Respiratory effort is even, unlabored, Respiratory pattern is regular, symmetrical. GI: No signs and/or symptoms were reported involving the gastrointestinal system. : Reports pain in lower back. EENT: No signs and/or symptoms were reported regarding the EENT system. Derm: Skin is intact, is healthy with good turgor, Skin temperature is warm. Musculoskeletal: Circulation, motion, and sensation intact. Range of motion: intact in all extremities. 12:20 Reassessment: Patient to CT via wheelchair. vc 13:00 Reassessment: Patient and/or family updated on plan of care and expected duration. Pain vc level reassessed. Patient is alert, oriented x 3, equal unlabored respirations, skin warm/dry/pink. Patient states feeling better. Vital Signs: 11:50 BP 124 / 77; Pulse 73; Resp 16 S; Temp 98.2(O); Pulse Ox 98% on R/A; aa5 13:17 BP 102 / 48; Pulse 68; Resp 15; Pulse Ox 95% on R/A; vc ED Course: 11:37 Patient arrived in ED. ag5 11:38 Frantz Cruz MD is Private Physician. ag5 11:43 Arm band placed on Patient placed in an exam room, on a stretcher. aa5 11:44 Radhames Vu MD is Attending Physician. rn 11:53 Triage completed. aa5 11:55 Madeiln Guillen, SHAUN is Primary Nurse. vc 12:05 Missed attempt(s): 20 gauge in right antecubital area. Bleeding controlled, band aid vc applied, catheter tip intact. 12:13 Patient has correct armband on for positive identification. Bed in low position. Call 5 light in reach. Side rails up X 1. Adult w/ patient. Warm blanket given. Pulse ox on. NIBP on. 12:13 Inserted saline lock: 22 gauge in left antecubital area, using aseptic technique. [facility] 12:14 Basic Metabolic Panel Sent. 5 12:14 CBC with Diff Sent. 5 12:14 Creatinine for Radiology Sent. 5 12:14 Hepatic Function Sent. [facility] 12:14 Lipase Sent. [facility] 12:26 CT completed. Patient tolerated procedure well. Patient moved back from CT. 3 12:26 CT Stone Protocol In Process Unspecified. EDMS 13:15 No provider procedures requiring assistance completed. vc 13:30 IV discontinued, intact, bleeding controlled, No redness/swelling at site. Pressure vc dressing applied. Administered Medications: 12:19 Drug: Decadron - Dexamethasone 10 mg Route: IVP; Site: left forearm; vc 13:00 Follow up: Response: No adverse reaction; Pain is decreased vc 12:20 Drug: Demerol 25 mg Route: IVP; Site: left forearm; vc 13:00 Follow up: Response: No adverse reaction; Pain is decreased vc Outcome: 13:18 Discharge ordered by . rn 13:32 Discharged to home via wheelchair. vc 13:32 Condition: improved 13:32 Discharge instructions given to patient, significant other, Instructed on discharge instructions, follow up and referral plans. medication usage, Demonstrated understanding of instructions, follow-up care, medications, Prescriptions given X 3. 13:33 Patient left the ED. vc Signatures: Dispatcher [employer] EDMS Radhames Vu MD MD rn Calderon, Audri, RN RN sky5 Alyson Floyd 5 Bessie Montiel 3 Hari Lam 5 Madelin Guillen RN RN vc
[2019-11-12 13:41] VITALS: TEMP 98.2
[2019-11-12 13:42] VITALS: BP 102/48; O2SAT 95
[2019-11-12 20:13] LABS: Urine Blood NEGATIVE (NEG); Urine Glucose NEGATIVE (NEG); Urine Protein NEGATIVE (NEG); Urine pH 6.5 (5.0-7.0)
== END 2019-11-12 13:33 | disposition home or self-care (01) ==
LOC: ER 11:35
DX: M62.830 Muscle spasm of back (principal); M47.9 Spondylosis, unspecified; Z88.1 Allergy status to other antibiotic agents; Z88.5 Allergy status to narcotic agent
CPT/HCPCS: 85025; 80048; 36415; 80076; 83690; 76377; 74176; 96375; 96374; 99284; J1100; J2175; 81003; 81015

== ENCOUNTER 2019-12-31 10:40 | Emergency (ER) | payer OTHER ==
[2019-12-31] MEDS ORDERED: MORPHINE 2 MG/ML SYR ONE ×2 (11:31→14:48)
[2019-12-31] MEDS ORDERED: ONDANSETRON 4 MG/2 ML VIAL ONE (11:32)
[2019-12-31 11:36] LABS: Absolute Lymphocytes (CBC) 0.8 K/uL (0.7-4.9); Basophils % 0.3 % (0-1.3); Hematocrit 37.1 % (39.6-49.0); Lymphocytes % 11.5 % (15.3-44.8); MPV 7.6 fL (7.6-11.3); RBC Red Blood Cell Count 4.31 M/uL (4.33-5.43)
[2019-12-31 11:37] LABS: Protime INR 1.36
[2019-12-31 11:54] LABS: ALT/SGPT 16 U/L (12-78); AST/SGOT 23 U/L (15-37); Albumin 2.5 g/dL (3.4-5.0); Alkaline Phosphatase 100 U/L (45-117); BUN Blood Urea Nitrogen 20 mg/dL (7-18); Bicarbonate 27 mmol/L (21-32); Bilirubin Direct 0.4 mg/dL (0-0.2); Bilirubin Total 0.9 mg/dL (0.2-1.0); Glucose Level 98 mg/dL (74-106); Magnesium 1.9 mg/dL (1.8-2.4); Potassium 3.6 mmol/L (3.5-5.1); Protein, Total 8.4 g/dL (6.4-8.2); Sodium Level 136 mmol/L (136-145); Troponin (Emerg Dept Use Only) < 0.02 ng/mL (0.0-0.045)
--- NOTE | 2019-12-31 12:53 | RAD REPORT ---
EXAM DESCRIPTION: CT - Angio Aorta For Dissection - 12/31/2019 12:22 pm CLINICAL HISTORY: . Chest an dabd pain COMPARISON: November 2019 TECHNIQUE: Computed tomography angiography of the chest, abdomen pelvis were obtained. 100 cc Isovue 370 was administered intravenously. Coronal and sagittal reconstruction were performed. MIP 3D reconstruction was performed All CT scans are performed using dose optimization technique as appropriate and may include automated exposure control or mA/KV adjustment according to patient size. FINDINGS: Destruction involves portions of the inferior vertebral endplate of T11 and superior verte bral endplate T12. Destruction also involves the inferior vertebral endplate of T4 and superior verte bral endplate of T5 with paravertebral soft tissue at these levels No aortic dissection. The celiac, SMA and RENY are patent No lung consolidation. No pleural effusion. No pericardial effusion. Small thyroid nodule Cirrhotic liver. Spleen measures 20 centimeters. Varices are present within the abdomen and paraesoph ageal region. Small hepatic cyst The pancreas and right adrenal gland are unremarkable. 3.7 centimeter left adrenal mass unchanged There is no evidence of diverticulitis. The appendix appears normal. Small left inguinal hernia contains a small portion of the bladder. Large right inguinal hernia contains nondilated small bowel Mild anterior subluxation L5 on S1. Spondylolysis L5 Moderate umbilical hernia contains small amount of fluid. It is unchanged Mild to moderate prostatic enlargement . IMPRESSION: Osteomyelitis involves T4 and T5 as well as T11 and T12 with paravertebral soft tissue No aortic dissection
[2019-12-31 13:09] LABS: Urine Blood 2+ (NEG); Urine Glucose NEGATIVE (NEG); Urine Protein 1+ (NEG); Urine Specific Gravity 1.015 (1.005-1.030)
--- NOTE | 2019-12-31 13:18 | ER ---
Nurse's Notes [facility] Name: Rich Montana Age: 64 yrs Sex: Male : 1955 Arrival Date: 12/31/2019 Time: 10:44 Bed 19 Private MD: Frantz Cruz Diagnosis: Low back pain;Weakness-lower extremities;Osteomyelitis of vertebra, thoracic region-T 4,5, 11 and 12.-paraveterbral soft tissue swelling;Urinary tract infection, site not specified-BPH, Prostititis;Unspecified cirrhosis of liver Presentation: 12/30 10:49 Chief complaint: Back pain x 3 weeks, bilat leg weakness and difficulty walking x 1 hb week. Denies injury. Coronavirus screen: Proceed with normal triage. Ebola Screen: No symptoms or risks identified at this time. Initial Sepsis Screen: Does the patient meet any 2 criteria? No. Patient's initial sepsis screen is negative. Does the patient have a suspected source of infection? No. Patient's initial sepsis screen is negative. Risk Assessment: Do you want to hurt yourself or someone else? Patient reports no desire to harm self or others. Onset of symptoms was December 2019. 10:49 Method Of Arrival: Wheelchair hb 10:49 Acuity: SIGIFREDO 3 hb Historical: - Allergies: 10:53 acromycin; hb 10:53 Codeine; hb - Home Meds: 10:53 furosemide 40 mg Oral tab 1 tab once daily [Active]; pantoprazole 40 mg Oral TbEC 1 tab hb once daily [Active]; propranolol 10 mg Oral tab 1 tab twice daily [Active]; spironolactone 25 mg Oral tab 1 tab once daily [Active]; - PMHx: 10:53 Cirrhosis; GERD; hb - Immunization history:: Adult Immunizations up to date. - Social history:: Smoking status: Patient denies any tobacco usage or history of. - Family history:: not pertinent. Screenin:00 Abuse screen: Denies threats or abuse. Nutritional screening: No deficits noted. vc Tuberculosis screening: No symptoms or risk factors identified. Fall Risk None identified. Assessment: 10:50 General: Appears uncomfortable, Behavior is calm, cooperative. Pain: Complains of pain ah in back Pain does not radiate. Pain currently is 6 out of 10 on a pain scale. Neuro: Level of Consciousness is awake, alert, Oriented to person, place, time, situation, Anodize Machine Operator are equal bilaterally Reports tingling to bilateral lower extremities. Cardiovascular: Denies chest pain, Heart tones S1 S2 present Capillary refill < 3 seconds Patient's skin is warm and dry. Pulses are palpable in right radial artery and left radial artery. Respiratory: Airway is patent Respiratory effort is even, unlabored, Respiratory pattern is regular, Breath sounds are clear bilaterally. GI: No signs and/or symptoms were reported involving the gastrointestinal system. : Reports incontinence, x1 since his back has been hurting Denies burning with urination. EENT: No signs and/or symptoms were reported regarding the EENT system. Derm: No signs and/or symptoms reported regarding the dermatologic system. Skin is intact, is healthy with good turgor. Musculoskeletal: Circulation, motion, and sensation intact. Capillary refill < 3 seconds, Range of motion: limited in BLE. 11:35 Reassessment: pt given pain medication at this time. No other needs voiced. 12:35 Reassessment: Pt states that the medication has helped. Awaiting on radiology and lab ah results at this time. No other needs voiced. 13:35 Reassessment: Patient and/or family updated on plan of care and expected duration. Pain ah level reassessed. blood cultures drawn at this time. 14:20 Reassessment: Report called to [facility] RN. Pt informed of approx time of departure and room assignment. Pt asked for pain medication to be given before he leaves again. Order received. 15:02 Reassessment: Morphine administered for pain. No other needs voiced. Vital Signs: 10:49 BP 112 / 74; Pulse 77; Resp 16; Temp 98.2; Pulse Ox 98% on R/A; Weight 68.04 kg; Height hb 5 ft. 8 in. (172.72 cm); Pain 5/10; 11:58 BP 108 / 70; Pulse 66; Resp 18; Temp 97.9(TE); Pulse Ox 96% on R/A; mh5 13:00 BP 105 / 70; Pulse 72; Resp 19; Pulse Ox 97% ; vc 14:00 BP 107 / 74; Pulse 74; Resp 22; Pulse Ox 98% on R/A; vc 15:03 BP 99 / 73; Pulse 67; Resp 15; Temp 98.8; Pulse Ox 96% ; ah 10:49 Body Mass Index 22.81 (68.04 kg, 172.72 cm) hb ED Course: 10:44 Patient arrived in ED. am2 10:44 Frantz Cruz MD is Private Physician. am2 10:52 Triage completed. hb 10:53 Arm band placed on. hb 10:55 Anoop Conteh MD is Attending Physician. prabhjot 11:20 Radiology exam delayed due to lab results not completed at this time. (BUN/Creatinine). bq 11:24 Jossie Smith, RN is Primary Nurse. ah 11:56 Patient has correct armband on for positive identification. Bed in low position. Call mh5 light in reach. Side rails up X 1. satellite project site monitor on. Pulse ox on. NIBP on. 11:56 Initial lab(s) drawn, by me, sent to lab. EKG done, by ED staff, reviewed by Anoop Conteh MD. Inserted saline lock: 20 gauge in left forearm, using aseptic technique. Blood collected. 12:22 CT Aorta for Dissection In Process Unspecified. EDMS 12:59 Urine collected: clean catch specimen, cloudy, stevie colored. 3 13:[address] Conteh with Tamera Wall from the [facility]. 13:[address] Salgado the neurosurgeon device sales consultant for [facility] with Dr. Conteh for patient transfer consultation. 13:54 administrative approval given by Tamera Wall/ patient has been accepted to [address] 8[address]/ Dr. Andrew Lyles has accepted the patient in transfer/ report to be called to [phone]. 15:35 No provider procedures requiring assistance completed. Patient transferred, IV remains vc in place. Administered Medications: 11:35 Drug: morphine 2 mg Route: IVP; Site: left antecubital; 11:35 Drug: Zofran (Ondansetron) 4 mg Route: IVP; Site: left antecubital; 14:49 Follow up: Response: No adverse reaction 13:55 Drug: Cefepime 2 grams Route: IVPB; Rate: 200 ml/hr; Infused Over: 30 mins; Site: left ah antecubital; 15:43 Follow up: Response: No adverse reaction; IV Status: Completed infusion ah 14:47 Drug: vancoMYCIN 1.5 grams Route: IVPB; Rate: calculated rate; Site: left antecubital; 15:43 Follow up: Response: No adverse reaction; IV Status: Infusion continued upon transfer 14:49 Drug: morphine 2 mg Route: IVP; Site: left antecubital; 14:49 Follow up: Response: No adverse reaction ah 15:43 Follow up: Response: No adverse reaction Outcome: 13:18 ER care complete, transfer ordered by . prabhjot 15:35 Patient left the ED. vc 15:35 Transferred by ground EMS to [facility], Transfer form completed. vc X-rays sent w/ patient. 15:35 Condition: stable vc 15:35 Instructed on the need for transfer. Signatures: Dispatcher [employer] EDAnoop Cruz MD MD cha Quilty, Betty bq Baxter, Heather, RN RN hb Martinez, Maria 5 Dora Rojas Elizabeth eb Pisarski, Jacob jp3 Madelin Guillen RN RN vc Harris, Amy, RN RN Corrections: (The following items were deleted from the chart) 14:59 13:35 Reassessment: Patient and/or family updated on plan of care and expected ah duration. Pain level reassessed. 15:57 15:54 Patient left the ED. vc vc
--- NOTE | 2019-12-31 13:19 | EDPHYS ---
Physician Documentation [facility] Name: Rich Montana Age: 64 yrs Sex: Male : 1955 Arrival Date: 12/31/2019 Time: 10:44 Bed 19 Private MD: Frantz Cruz ED Physician Anoop Conteh HPI: 12/30 11:15 This 64 yrs old Male presents to ER via Wheelchair with complaints of Back prabhjot Pain, Leg Pain - Weakness. 11:15 The patient presents with pain that is acute, and decreased range of motion. The prabhjot symptoms are located in the thoracic area, lumbar area and sacrum. Onset: The symptoms/episode began/occurred 3 week(s) ago. The pain radiates to the left supraclavicular area, left clavicle, anterior aspect of left upper chest and mid-sternal area. Associated signs and symptoms: Pertinent positives: leg pain, weakness. 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 Modifying factors: The patient symptoms are alleviated by remaining still, the patient symptoms are aggravated by bending, lifting, movement, standing. The patient has not experienced similar symptoms in the past. Historical: - Allergies: 10:53 acromycin; hb 10:53 Codeine; hb - Home Meds: 10:53 furosemide 40 mg Oral tab 1 tab once daily [Active]; pantoprazole 40 mg Oral TbEC 1 tab hb once daily [Active]; propranolol 10 mg Oral tab 1 tab twice daily [Active]; spironolactone 25 mg Oral tab 1 tab once daily [Active]; - PMHx: 10:53 Cirrhosis; GERD; hb - Immunization history:: Adult Immunizations up to date. - Social history:: Smoking status: Patient denies any tobacco usage or history of. - Family history:: not pertinent. ROS: 11:15 Constitutional: Negative for fever, chills, and weight loss, Eyes: Negative for injury, prabhjot pain, redness, and discharge, ENT: Negative for injury, pain, and discharge, Neck: Negative for injury, pain, and swelling, Respiratory: Negative for shortness of breath, cough, wheezing, and pleuritic chest pain, Abdomen/GI: Negative for abdominal pain, nausea, vomiting, diarrhea, and constipation, : Negative for injury, bleeding, discharge, and swelling, MS/Extremity: Negative for injury and deformity, Skin: Negative for injury, rash, and discoloration, Neuro: Negative for headache, weakness, numbness, tingling, and seizure, Psych: Negative for depression, anxiety, suicide ideation, homicidal ideation, and hallucinations, Allergy/Immunology: Negative for hives, rash, and allergies, Endocrine: Negative for neck swelling, polydipsia, polyuria, polyphagia, and marked weight changes, Hematologic/Lymphatic: Negative for swollen nodes, abnormal bleeding, and unusual bruising. 11:15 Cardiovascular: Positive for chest pain, of the left supraclavicular area, left clavicle, anterior aspect of left upper chest and mid-sternal area. 11:15 MS/extremity: Negative for acute changes, pain, swelling, tenderness. Exam: 11:15 Constitutional: This is a well developed, well nourished patient who is awake, alert, prabhjot and in no acute distress. Head/Face: Normocephalic, atraumatic. Eyes: Pupils equal round and reactive to light, extra-ocular motions intact. Lids and lashes normal. Conjunctiva and sclera are non-icteric and not injected. Cornea within normal limits. Periorbital areas with no swelling, redness, or edema. ENT: Nares patent. No nasal discharge, no septal abnormalities noted. Tympanic membranes are normal and external auditory canals are clear. Oropharynx with no redness, swelling, or masses, exudates, or evidence of obstruction, uvula midline. Mucous membranes moist. Neck: Trachea midline, no thyromegaly or masses palpated, and no cervical lymphadenopathy. Supple, full range of motion without nuchal rigidity, or vertebral point tenderness. No Meningismus. Chest/axilla: Normal chest wall appearance and motion. Nontender with no deformity. No lesions are appreciated. Cardiovascular: Regular rate and rhythm with a normal S1 and S2. No gallops, murmurs, or rubs. Normal PMI, no JVD. No pulse deficits. Respiratory: Lungs have equal breath sounds bilaterally, clear to auscultation and percussion. No rales, rhonchi or wheezes noted. No increased work of breathing, no retractions or nasal flaring. Abdomen/GI: Soft, non-tender, with normal bowel sounds. No distension or tympany. No guarding or rebound. No evidence of tenderness throughout. Male : Normal genitalia with no discharge or lesions. Skin: Warm, dry with normal turgor. Normal color with no rashes, no lesions, and no evidence of cellulitis. MS/ Extremity: Pulses equal, no cyanosis. Neurovascular intact. Full, normal range of motion. Neuro: Awake and alert, GCS 15, oriented to person, place, time, and situation. Cranial nerves II-XII grossly intact. Motor strength 5/5 in all extremities. Sensory grossly intact. Cerebellar exam normal. Normal gait. Psych: Awake, alert, with orientation to person, place and time. Behavior, mood, and affect are within normal limits. 11:15 Back: ROM is painful, with flexion, with extension, normal spinal alignment noted, CVA tenderness, is absent, vertebral tenderness, is not appreciated, muscle spasm, is not present, Straight leg raises: right lower extremity does not illicit pain, left lower extremity does not illicit pain, of both lower extremities does not illicit pain. Vital Signs: 10:49 BP 112 / 74; Pulse 77; Resp 16; Temp 98.2; Pulse Ox 98% on R/A; Weight 68.04 kg; Height hb 5 ft. 8 in. (172.72 cm); Pain 5/10; 11:58 BP 108 / 70; Pulse 66; Resp 18; Temp 97.9(TE); Pulse Ox 96% on R/A; mh5 13:00 BP 105 / 70; Pulse 72; Resp 19; Pulse Ox 97% ; vc 14:00 BP 107 / 74; Pulse 74; Resp 22; Pulse Ox 98% on R/A; vc 15:03 BP 99 / 73; Pulse 67; Resp 15; Temp 98.8; Pulse Ox 96% ; ah 10:49 Body Mass Index 22.81 (68.04 kg, 172.72 cm) hb MDM: 10:55 Patient medically screened. [facility] 11:18 Data reviewed: vital signs, nurses notes, lab test result(s), EKG, radiologic studies, prabhjot CT scan. 13:06 Differential diagnosis: Abdominal Aortic Aneurysm chronic back pain, Epidural or prabhjot Perispinal Abcess Osteoarthritis Osteomyelitis Pyelonephritis spinal injury, sprain. Data interpreted: pediatric oncologist: rate is 66 beats/min, rhythm is normal sinus rhythm, Pulse oximetry: on room air. ED course: pt co of leg weakness increasing x 1 week, corresponds to CT findings. ED course: pain decreased. 12/30 11:11 Order name: Basic Metabolic Panel; Complete Time: 12:35 [facility] 12/30 11:11 Order name: CBC with Diff; Complete Time: 12:35 [facility] 12/30 11:11 Order name: LFT's; Complete Time: 12:35 [facility] 12/30 11:11 Order name: Magnesium; Complete Time: 12:35 [facility] 12/30 11:11 Order name: PT-INR; Complete Time: 12:35 [facility] 12/30 11:11 Order name: Troponin (emerg Dept Use Only); Complete Time: 12:35 [facility] 12/30 11:11 Order name: CT Aorta for Dissection; Complete Time: 13:15 [facility] 12/30 13:00 Order name: Urine Dipstick--Ancillary (enter results); Complete Time: 13:15 12/30 13:00 Order name: Urine Culture: infected UA 12/30 13:06 Order name: Blood Culture Adult (2): osteo on ct t 4,5,11,12 plus uti [facility] 12/30 13:36 Order name: Sed Rate: per neuro doc [facility] 12/30 11:11 Order name: EKG; Complete Time: 11:11 [facility] 12/30 11:11 Order name: Cardiac monitoring; Complete Time: 14:00 [facility] 12/30 11:11 Order name: EKG - Nurse/Tech; Complete Time: 14:00 [facility] 12/30 11:11 Order name: IV Saline Lock; Complete Time: 14:00 [facility] 12/30 11:11 Order name: Labs collected and sent; Complete Time: 14:01 [facility] 12/30 11:11 Order name: O2 Per Protocol; Complete Time: 14:01 [facility] 12/30 11:11 Order name: O2 Sat Monitoring; Complete Time: 14:01 [facility] 12/30 11:11 Order name: Urine Dipstick-Ancillary (obtain specimen): back pain; Complete Time: 12:59 [facility] Administered Medications: 11:35 Drug: morphine 2 mg Route: IVP; Site: left antecubital; 11:35 Drug: Zofran (Ondansetron) 4 mg Route: IVP; Site: left antecubital; 14:49 Follow up: Response: No adverse reaction 13:55 Drug: Cefepime 2 grams Route: IVPB; Rate: 200 ml/hr; Infused Over: 30 mins; Site: left antecubital; 15:43 Follow up: Response: No adverse reaction; IV Status: Completed infusion 14:47 Drug: vancoMYCIN 1.5 grams Route: IVPB; Rate: calculated rate; Site: left antecubital; 15:43 Follow up: Response: No adverse reaction; IV Status: Infusion continued upon transfer 14:49 Drug: morphine 2 mg Route: IVP; Site: left antecubital; 14:49 Follow up: Response: No adverse reaction 15:43 Follow up: Response: No adverse reaction Disposition: 12/31/19 13:[address] [facility]. Diagnosis are Low back pain, Weakness - lower extremities, Osteomyelitis of vertebra, thoracic region - T 4,5, 11 and 12.-paraveterbral soft tissue swelling, Urinary tract infection, site not specified - BPH, Prostititis, Unspecified cirrhosis of liver. - Reason for transfer: Higher level of care. - Accepting [facility] - Condition is Fair. - Problem is new. - Symptoms are unchanged. Signatures: Dispatcher [employer] EDAnoop Cruz MD MD cha Baxter, Heather, RN RN hb Calcote, Vanessa, RN RN vc Harris, Amy, RN RN Corrections: (The following items were deleted from the chart) 13:35 13:18 12/31/2019 13:[address] [facility]. [facility] Diagnosis is Low back pain; Weakness - lower extremities; Osteomyelitis of vertebra, thoracic region - T 4,5, 11 and 12.; Urinary tract infection, site not specified - BPH, Prostititis. Reason for transfer: Higher level of care. Accepting physician is to [facility]. Condition is Fair. Problem is new. Symptoms are unchanged. [facility] 13:57 13:35 12/31/2019 13:[address] [facility]. [facility] Diagnosis is Low back pain; Weakness - lower extremities; Osteomyelitis of vertebra, thoracic region - T 4,5, 11 and 12.; Urinary tract infection, site not specified - BPH, Prostititis; Unspecified cirrhosis of liver. Reason for transfer: Higher level of care. Accepting physician is to [facility]. Condition is Fair. Problem is new. Symptoms are unchanged. prabhjot 15:54 13:57 12/31/2019 13:[address] [facility]. vc Diagnosis is Low back pain; Weakness - lower extremities; Osteomyelitis of vertebra, thoracic region - T 4,5, 11 and 12.-paraveterbral soft tissue swelling; Urinary tract infection, site not specified - BPH, Prostititis; Unspecified cirrhosis of liver. Reason for transfer: Higher level of care. Accepting physician is to [facility]. Condition is Fair. Problem is new. Symptoms are unchanged. [facility]
[2019-12-31] MEDS ORDERED: CEFEPIME 2 GM VIAL ONE (13:32)
[2019-12-31] MEDS ORDERED: NA CHLORIDE 0.9% 100 ML IV ONE (13:33)
[2019-12-31] MEDS ORDERED: NA CHLORIDE 0.9% 0 ML ONE (13:33)
[2019-12-31] MEDS ORDERED: VANCOMYCIN 1 GM/VIAL ONE (13:33)
[2019-12-31] MEDS ORDERED: NA CHLORIDE 0.9% 500 ML ONE (13:37)
[2019-12-31 16:09] VITALS: BP 99/73; TEMP 98.8; O2SAT 96
--- NOTE | 2020-01-01 06:50 | EKG ---
Test Date: 2019-12-31 Test Time: 11:37:13 Transitional Care Liaison: JOHANNA MEASUREMENT RESULTS: Intervals: Rate: 73 LA: 168 QRSD: 78 QT: 388 QTc: 427 [place]: P: 42 LA: 168 QRS: 46 T: 42 INTERPRETIVE STATEMENTS: Normal sinus rhythm Normal ECG Compared to ECG 03/01/2018 15:46:26 Sinus tachycardia no longer present Electronically Signed On 01-01-20 06:48:38 CDT by Ernie Soliman
== END 2019-12-31 15:54 | disposition short-term general hospital (02) ==
LOC: ER 10:40
DX: R53.1 Weakness (principal); M46.24 Osteomyelitis of vertebra, thoracic region; N39.0 Urinary tract infection, site not specified; N41.9 Inflammatory disease of prostate, unspecified; N40.0 Benign prostatic hyperplasia without lower urinary tract symptoms; K74.60 Unspecified cirrhosis of liver; Z88.1 Allergy status to other antibiotic agents; Z88.5 Allergy status to narcotic agent
CPT/HCPCS: 96365; 93005; 87040 ×2; 87088; 85025; 87086; 80048; 36415; 83735; 87205 ×3; 85610; 80076; 85652; 87077; 87186; 81003; 84484; 71275; 74175; 96375; 99285; Q9967; J0692; J2270 ×2; J7040; J2405; J7030

== ENCOUNTER 2020-02-24 01:22 | Emergency (ER) | payer OTHER ==
[2020-02-24] MEDS ORDERED: NA CHLORIDE 0.9% 1,000 ML ONE (02:03)
[2020-02-24 02:15] LABS: Absolute Lymphocytes (CBC) 0.6 K/uL (0.7-4.9); Basophils % 0.3 % (0-1.3); Hematocrit 37.8 % (39.6-49.0); Lymphocytes % 6.7 % (15.3-44.8); MPV 9.2 fL (7.6-11.3); RBC Red Blood Cell Count 4.23 M/uL (4.33-5.43)
[2020-02-24 02:25] LABS: Bilirubin Direct 0.4 mg/dL (0-0.2); Bilirubin Total 1.4 mg/dL (0.2-1.0); Potassium 3.8 mmol/L (3.5-5.1); Protein, Total 7.9 g/dL (6.4-8.2)
[2020-02-24] MEDS ORDERED: KETOROLAC 30 MG/ML INJ ONE (03:12)
[2020-02-24] MEDS ORDERED: FENTANYL CITR 100 MCG/2 ML ONE (05:01)
--- NOTE | 2020-02-24 05:16 | ER ---
Nurse's Notes [facility] Name: Rich Montana Age: 64 yrs Sex: Male : 1955 Arrival Date: 02/24/2020 Time: 01:24 Bed 8 Private MD: Diagnosis: Low back pain;Strain of muscle and tendon of front wall of thorax Presentation: 02/23 01:31 Chief complaint: Patient states: "recent back surgery in December to remove an abscess. jd3 similar pain today with greater back pain. Coronavirus screen: Proceed with normal triage. Ebola Screen: Patient negative for fever greater than or equal to 101.5 degrees Fahrenheit, and additional compatible Ebola Virus Disease symptoms. Initial Sepsis Screen: Does the patient meet any 2 criteria? No. Patient's initial sepsis screen is negative. Does the patient have a suspected source of infection? No. Patient's initial sepsis screen is negative. Risk Assessment: Do you want to hurt yourself or someone else? Patient reports no desire to harm self or others. Onset of symptoms was February 18, 2020. 01:31 Method Of Arrival: EMS: [facility] jd3 01:31 Acuity: SIGIFREDO 3 jd3 01:34 Note right PICC line in place for IV therapy at home. Advil taken at 2145 last night. jd3 Historical: - Allergies: 01:34 acromycin; jd3 01:34 Codeine; jd3 01:51 tramadol; ea - Home Meds: 01:34 furosemide 40 mg Oral tab 1 tab once daily [Active]; pantoprazole 40 mg Oral TbEC 1 tab jd3 once daily [Active]; propranolol 10 mg Oral tab 1 tab twice daily [Active]; spironolactone 25 mg Oral tab 1 tab once daily [Active]; - PMHx: 01:34 Cirrhosis; GERD; jd3 - PSHx: 01:34 back; jd3 - Immunization history:: Adult Immunizations up to date. - Social history:: Smoking status: Patient denies any tobacco usage or history of. Screenin:43 Abuse screen: Denies threats or abuse. Nutritional screening: No deficits noted. ea Tuberculosis screening: No symptoms or risk factors identified. Fall Risk None identified. Assessment: 02:07 General: Appears uncomfortable, Behavior is appropriate for age. Pain: Complains of ea pain in right lateral posterior chest and left lateral posterior chest. Neuro: Level of Consciousness is awake, alert, obeys commands, Oriented to person, place, time. Respiratory: Airway is patent Respiratory effort is even, unlabored, Respiratory pattern is regular, symmetrical. Derm: Skin is dry, Skin is pale, Skin temperature is warm. 03:08 Reassessment: Patient and/or family updated on plan of care and expected duration. Pain ea level reassessed. Patient is alert, oriented x 3, equal unlabored respirations, skin warm/dry/pink. 04:12 Reassessment: Patient and/or family updated on plan of care and expected duration. Pain ea level reassessed. Patient is alert, oriented x 3, equal unlabored respirations, skin warm/dry/pink. 05:00 Reassessment: Patient appears in no apparent distress at this time. complaining of back rr5 pain and leg cramping. ED provider aware with order made and carried out. 05:31 Reassessment: Patient appears in no apparent distress at this time. Patient is alert, rr5 oriented x 3, equal unlabored respirations, skin warm/dry/pink. discharge instruction given and explained without complaints made. Patient states feeling better. Patient states symptoms have improved. Vital Signs: 01:30 Pulse 75; Resp 17; Temp 99.3(TE); Pulse Ox 97% on R/A; Weight 71.21 kg (R); Height 5 jd3 ft. 8 in. (172.72 cm) (R); Pain 7/10; 01:41 BP 87 / 49; ea 02:08 BP 99 / 66; Pulse 78; Resp 18; Pulse Ox 98% on R/A; ea 03:00 BP 111 / 55; Pulse 70; Resp 18; Pulse Ox 98% on R/A; ea 04:10 BP 102 / 63; Pulse 68; Resp 18; Pulse Ox 98% ; ea 05:22 BP 143 / 74; Pulse 86; Resp 18; Pulse Ox 99% ; ea 01:30 Body Mass Index 23.87 (71.21 kg, 172.72 cm) jd3 ED Course: 01:24 Patient arrived in ED. ag3 01:33 Triage completed. jd3 01:34 Arm band placed on. jd3 01:39 Veda Syed RN is Primary Nurse. ea 01:40 Rahul Howell MD is Attending Physician. tw4 01:42 Patient has correct armband on for positive identification. Bed in low position. Call ea light in reach. 03:00 No provider procedures requiring assistance completed. IV is patent, is intact, with rr5 fluids infusing freely, with good blood return, Flushed right PICC line with 5 ml normal saline. 03:02 CT Abd/Pelvis - IV Contrast Only In Process Unspecified. EDMS 05:04 CXR XRAY In Process Unspecified. EDMS 05:32 IV discontinued, flushed done in PICC line. rr5 Administered Medications: 02:06 Drug: NS 0.9% 1000 ml {Note: Pt has PICC line to right upper arm from outpatient IV ea antibiotic therapy .} Route: IV; Rate: 1 bolus; Site: PICC; 05:00 Follow up: Response: No adverse reaction; IV Status: Completed infusion; IV Intake: rr5 1000ml 03:09 Drug: TORadol - Ketorolac 15 mg Route: IVP; Site: PICC; ea 03:30 Follow up: Response: No adverse reaction; Pain is decreased ea 05:01 Drug: fentaNYL (PF) 25 mcg {Note: rass 0.} Route: IVP; Site: PICC; rr5 05:26 Follow up: Response: No adverse reaction; Pain is decreased; RASS: Alert and Calm (0) ea Intake: 05:00 IV: 1000ml; Total: 1000ml. rr5 Outcome: 05:15 Discharge ordered by . tw4 05:32 Discharged to home via wheelchair, with family. rr5 05:32 Condition: stable 05:32 Discharge instructions given to patient, family, Instructed on discharge instructions, follow up and referral plans. medication usage, Demonstrated understanding of instructions, follow-up care, medications, Prescriptions given X 2. 05:33 Patient left the ED. rr5 Signatures: Dispatcher [employer] EDMS Veda Syed RN RN ea Davies, Jonathon, RN RN jd3 Wadley, Terrence, MD MD tw4 Jena Mujica Raymond RN RN rr5 Corrections: (The following items were deleted from the chart) 01:36 01:34 Note right PICC line in place for IV therapy. guanakito calabrese
--- NOTE | 2020-02-24 05:16 | EDPHYS ---
Physician Documentation [facility] Name: Rich Montana Age: 64 yrs Sex: Male : 1955 Arrival Date: 02/24/2020 Time: 01:24 Bed 8 Private MD: ED Physician Rahul Howell HPI: 02/23 05:25 This 64 yrs old Male presents to ER via EMS with complaints of Back Pain. tw4 05:25 The patient presents with pain that is chronic, with no known mechanism of injury. The tw4 symptoms are located in the right subscapular area, left low back and right low back. Onset: The symptoms/episode began/occurred 1 week(s) ago. The pain radiates to the right lateral anterior chest. 05:26 Associated signs and symptoms: The patient has no apparent associated signs or tw4 symptoms. Severity of symptoms: At their worst the symptoms were moderate, in the emergency department the symptoms are unchanged. The patient has not experienced similar symptoms in the past. Historical: - Allergies: 01:34 acromycin; jd3 01:34 Codeine; jd3 01:51 tramadol; ea - Home Meds: 01:34 furosemide 40 mg Oral tab 1 tab once daily [Active]; pantoprazole 40 mg Oral TbEC 1 tab jd3 once daily [Active]; propranolol 10 mg Oral tab 1 tab twice daily [Active]; spironolactone 25 mg Oral tab 1 tab once daily [Active]; - PMHx: 01:34 Cirrhosis; GERD; jd3 - PSHx: 01:34 back; jd3 - Immunization history:: Adult Immunizations up to date. - Social history:: Smoking status: Patient denies any tobacco usage or history of. ROS: 05:26 Constitutional: Negative for fever, chills, and weight loss, Eyes: Negative for injury, tw4 pain, redness, and discharge, Cardiovascular: Negative for chest pain, palpitations, and edema, Respiratory: Negative for shortness of breath, cough, wheezing, and pleuritic chest pain, Abdomen/GI: Negative for abdominal pain, nausea, vomiting, diarrhea, and constipation, MS/Extremity: Negative for injury and deformity, Skin: Negative for injury, rash, and discoloration, Neuro: Negative for headache, weakness, numbness, tingling, and seizure. 05:26 Back: Positive for decreased range of motion, pain at rest, pain with movement, Negative for injury or acute deformity. Exam: 05:26 Constitutional: This is a well developed, well nourished patient who is awake, alert, tw4 and in no acute distress. Head/Face: Normocephalic, atraumatic. Chest/axilla: Normal chest wall appearance and motion. Nontender with no deformity. No lesions are appreciated. Cardiovascular: Regular rate and rhythm with a normal S1 and S2. No gallops, murmurs, or rubs. Normal PMI, no JVD. No pulse deficits. Respiratory: Lungs have equal breath sounds bilaterally, clear to auscultation and percussion. No rales, rhonchi or wheezes noted. No increased work of breathing, no retractions or nasal flaring. Abdomen/GI: Soft, non-tender, with normal bowel sounds. No distension or tympany. No guarding or rebound. No evidence of tenderness throughout. MS/ Extremity: Pulses equal, no cyanosis. Neurovascular intact. Full, normal range of motion. Neuro: Awake and alert, GCS 15, oriented to person, place, time, and situation. Cranial nerves II-XII grossly intact. Motor strength 5/5 in all extremities. Sensory grossly intact. Cerebellar exam normal. Normal gait. 05:26 Back: pain, that is very mild, ROM is normal, normal spinal alignment noted. Vital Signs: 01:30 Pulse 75; Resp 17; Temp 99.3(TE); Pulse Ox 97% on R/A; Weight 71.21 kg (R); Height 5 jd3 ft. 8 in. (172.72 cm) (R); Pain 7/10; 01:41 BP 87 / 49; ea 02:08 BP 99 / 66; Pulse 78; Resp 18; Pulse Ox 98% on R/A; ea 03:00 BP 111 / 55; Pulse 70; Resp 18; Pulse Ox 98% on R/A; ea 04:10 BP 102 / 63; Pulse 68; Resp 18; Pulse Ox 98% ; ea 05:22 BP 143 / 74; Pulse 86; Resp 18; Pulse Ox 99% ; ea 01:30 Body Mass Index 23.87 (71.21 kg, 172.72 cm) jd3 MDM: 01:41 Patient medically screened. tw4 05:26 Differential diagnosis: arthritis, chronic back pain, Fracture Joint Injury Ligament tw4 Injury Neoplasm Pyelonephritis sprain, Ureterolithiasis vertebral fracture. Data reviewed: vital signs, nurses notes. Data reviewed: lab test result(s), CBC, electrolytes, radiologic studies, CT scan. Data interpreted: Pulse oximetry: Interpretation: normal. Counseling: I had a detailed discussion with the patient and/or guardian regarding: the historical points, exam findings, and any diagnostic results supporting the discharge/admit diagnosis. Medication response: fentanyl. Response to treatment: the patient's symptoms have markedly improved after treatment, and as a result, I will discharge patient. Special discussion: I discussed with the patient/guardian in detail that at this point there is no indication for admission to the hospital. It is understood, however, that if the symptoms persist or worsen the patient needs to return immediately for re-evaluation. 02/23 01:54 Order name: Basic Metabolic Panel; Complete Time: 02:34 02/23 02:34 Interpretation: Normal except: GLUC 142; GFR 44; CRE 1.57; BUN 30. 02/23 01:54 Order name: CBC with Diff; Complete Time: 02:34 02/23 02:34 Interpretation: Normal except: RBC 4.23; HGB 12.6; HCT 37.8; MCV 89.5; MN% 13.7; LYM% tw4 6.7; CECILLE% 77.8; PLT 82; LYMA 0.6. 02/23 01:54 Order name: Hepatic Function; Complete Time: 02:34 02/23 02:34 Interpretation: Normal except: ALT 10; BILIT 1.4; BILID 0.4; ALB 3.0; GLOB 4.9; A/G 0.6.02/23 01:54 Order name: Lipase; Complete Time: 02:34 02/23 02:34 Interpretation: Within normal limits: LIP 131. 02/23 01:54 Order name: CT Abd/Pelvis - IV Contrast Only 02/23 04:47 Order name: CXR XRAY 02/23 01:54 Order name: Labs collected and sent; Complete Time: 02:06 02/23 03:18 Order name: Urine Dipstick-Ancillary (obtain specimen); Complete Time: 04:51 tw4 Administered Medications: 02:06 Drug: NS 0.9% 1000 ml {Note: Pt has PICC line to right upper arm from outpatient IV ea antibiotic therapy .} Route: IV; Rate: 1 bolus; Site: PICC; 05:00 Follow up: Response: No adverse reaction; IV Status: Completed infusion; IV Intake: rr5 1000ml 03:09 Drug: TORadol - Ketorolac 15 mg Route: IVP; Site: PICC; ea 03:30 Follow up: Response: No adverse reaction; Pain is decreased ea 05:01 Drug: fentaNYL (PF) 25 mcg {Note: rass 0.} Route: IVP; Site: PICC; rr5 05:26 Follow up: Response: No adverse reaction; Pain is decreased; RASS: Alert and Calm (0) ea Disposition: 02/24/20 05:15 Discharged to Home. Impression: Low back pain, Strain of muscle and tendon of front wall of thorax. - Condition is Stable. - Discharge Instructions: Chronic Back Pain, Musculoskeletal Pain, Pain Without a Known Cause. - Prescriptions for Cyclobenzaprine 10 mg Oral Tablet - take 1 tablet by ORAL route every 8 hours As needed; 30 tablet. diclofenac sodium 3 % Topical gel - apply 1 application by TOPICAL route 2 times per day; 1 tube. - Medication Reconciliation Form, Thank You Letter, Antibiotic Education, Prescription Opioid Use form. - Follow up: Private Physician; When: Upon discharge from the Emergency Department; Reason: Recheck today's complaints, Continuance of care, Re-evaluation by your physician. - Problem is new. - Symptoms have improved. Signatures: Dispatcher [employer] EDVeda Morales RN RN ea Davies, Jonathon, RN RN jd3 Rahul Howell MD MD tw4 Lavon Kern RN RN rr5 Corrections: (The following items were deleted from the chart) 05:33 05:15 02/24/2020 05:15 Discharged to Home. Impression: Low back pain; Strain of muscle rr5 and tendon of front wall of thorax. Condition is Stable. Forms are Medication Reconciliation Form, Thank You Letter, Antibiotic Education, Prescription Opioid Use. Follow up: Private Physician; When: Upon discharge from the Emergency Department; Reason: Recheck today's complaints, Continuance of care, Re-evaluation by your physician. Problem is new. Symptoms have improved. tw4
[2020-02-24 05:38] VITALS: TEMP 99.3
[2020-02-24 05:44] VITALS: BP 143/74; O2SAT 99
--- NOTE | 2020-02-24 07:55 | RAD REPORT ---
EXAM DESCRIPTION: RAD - Chest Single View - 02/24/2020 5:04 am CLINICAL HISTORY: back pain COMPARISON: Portable March 08, 2018 TECHNIQUE: AP portable chest image was obtained 02/24/2020 5:04 am . FINDINGS: Lung volumes are low. Right hemithorax volume is further reduced by right hemidiaphragm el evation. Right-side PICC line is in place. No peripheral mass or consolidation. Lung markings are not clearly different from comparison. Heart and vasculature are normal. No measurable pleural effusion and no pneumothorax. No acute bony abnormality seen. No acute aortic findings suspected. IMPRESSION: Limited portable imaging without acute cardiopulmonary finding.
--- NOTE | 2020-02-24 09:06 | RAD REPORT ---
EXAM DESCRIPTION: CT - Abdomen Pelvis W Contrast - 02/24/2020 6:55 am COMPARISON: CT abdomen and pelvis December 31, 2019 CLINICAL HISTORY: Flank pain TECHNIQUE: Multiple helical axial images were obtained through the abdomen and pelvis using intraven ous contrast. Coronal and sagittal reformatted images were obtained. All CT scans at this facility use dose modulation, iterative reconstruction, and/or weight-based dosi ng when appropriate to reduce radiation dose to as low as reasonably achievable. FINDINGS: Lung bases: Mild right basilar atelectasis demonstrated. There is elevation of the right h emidiaphragm. Liver: Homogenous attenuation is noted. There is a 2.2 cm hypodense cyst in the right hepatic lobe. S lightly nodular contour of the liver is suggestive of cirrhotic changes. Gallbladder/biliary: Appears unremarkable Pancreas: Unremarkable. No evidence of ductal enlargement. Spleen: Appears enlarged measuring 19 cm longitudinally. Adrenals: A 4 cm hypodense mass in the left adrenal region is again noted appearing unchanged. Kidneys and ureters: No evidence of hydronephrosis. Normal enhancement. There are a few small stone s in the left kidney measuring up to 4 mm. No obstructing ureteral stone. Bladder: Unremarkable. Pelvic organs: Unremarkable. Bowel: No evidence of bowel obstruction. No bowel wall thickening. Appendix appears unremarkable. Vasculature: Varices in the abdomen again noted. Several varices near the distal esophagus are presen t. Mildly aortoiliac atherosclerosis is present. Peritoneum: No free air. No significant free fluid. Lymph nodes: Unremarkable. Soft tissues: Small umbilical hernia is present containing small varices. Large right inguinal hernia is demonstrated containing fat and nondilated small bowel. Bones: Degenerative changes of the lumbar spine are present. 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 There is grade 1 anterolisthesis of L5 relative to S1. Erosive changes of the opposing verteb ral bodies of T11 and T12 again noted. IMPRESSION: 1. No evidence for an acute process within the abdomen or pelvis. 2. Nonobstructing left-sided nephrolithiasis. 3. Indeterminate left adrenal mass again demonstrated which may represent an adenoma appearing unchan ged. 4. Cirrhotic appearance of liver with splenomegaly again demonstrated. Multiple varices within the ab domen and near the distal esophagus. 5. Large right inguinal hernia containing nondilated small bowel again demonstrated. 6. Erosive changes of the opposing T11 and T12 vertebrae are again demonstrated compatible with histo ry of discitis/osteomyelitis. Electronically signed by: Jan Townsend MD 02/24/2020 3:27 AM CDT Due to temporary technical issues with the PACS/Fluency reporting system, reports are being signed by the in house radiologist without review as a courtesy to ensure prompt reporting. The interpreting r adiologist is fully responsible for the content of the report.
== END 2020-02-24 05:33 | disposition home or self-care (01) ==
LOC: ER 01:22
DX: S29.011A Strain of muscle and tendon of front wall of thorax, initial encounter (principal); K21.9 Gastro-esophageal reflux disease without esophagitis; Z88.1 Allergy status to other antibiotic agents; Z88.5 Allergy status to narcotic agent
CPT/HCPCS: 96361; 85025; 80048; 36415; 80076; 83690; 74177; 71045; 96375; 96374; 99284; Q9967; J3010; J7030

== ENCOUNTER 2024-11-13 10:29 | Emergency (ER) | payer OTHER ==
[2024-11-13] MEDS ORDERED: TETRACAINE HCL 0.5% 4ML OPTH ONE (11:11)
[2024-11-13] MEDS ORDERED: FLUORESCEIN SODIUM 1 MG/WRAP ONE (11:12)
[2024-11-13] MEDS ORDERED: HYDROCODONE/APAP 5/325 MG TAB ONE (12:05)
[2024-11-13] MEDS ORDERED: VALACYCLOVIR 500 MG TAB ONE (12:39)
--- NOTE | 2024-11-13 13:02 | ER ---
Nurse's Notes [facility] Name: Rich Montana Age: 68 yrs Sex: Male : 1955 Arrival Date: 11/13/2024 Time: 10:29 Bed 16 Private MD: Diagnosis: Zoster without complications Presentation: 11/13 10:40 Chief complaint: Left periorbital swelling and itchy/painful rash on left face x 2-3 hb days. Started Lexapro 1 week ago, concerned it is related. Coronavirus screen: At this time, the client does not indicate any symptoms associated with coronavirus-19. Ebola Screen: No symptoms or risks identified at this time. Initial Sepsis Screen: Does the patient meet any 2 criteria? No. Patient's initial sepsis screen is negative. Does the patient have a suspected source of infection? No. Patient's initial sepsis screen is negative. Risk Assessment: Do you want to hurt yourself or someone else? Patient reports no desire to harm self or others. Onset of symptoms was November 11, 2024. 10:40 Method Of Arrival: Ambulatory hb 10:40 Acuity: SIGIFREDO 4 hb Triage Assessment: 13:29 General: Appears in no apparent distress. Behavior is calm, cooperative. kc6 Historical: - Allergies: 10:43 Codeine; hb 10:43 acromycin; hb 10:43 tramadol; hb - PMHx: 10:43 Cirrhosis; GERD; hb - Immunization history:: Adult Immunizations up to date. - Infectious Disease History:: Denies. - Social history:: Smoking status: Patient denies any tobacco usage or history of. Screenin:[address] [facility] ED Fall Risk Assessment (Adult) History of falling in the last 3 months, db including since admission No falls in past 3 months (0 pts) Confusion or Disorientation No (0 pts) Intoxicated or Sedated No (0 pts) Impaired Gait No (0 pts) Mobility Assist Device Used No (0 pt) Altered Elimination No (0 pt) Score/Fall Risk Level 0 - 2 = Low Risk Oriented to surroundings, Maintained a safe environment. Abuse screen: Denies threats or abuse. Denies injuries from another. Nutritional screening: No deficits noted. Tuberculosis screening: No symptoms or risk factors identified. Assessment: 11:12 Reassessment: Patient appears in no apparent distress at this time. Patient and/or db family updated on plan of care and expected duration. Pain level reassessed. Patient is alert, oriented x 3, equal unlabored respirations, skin warm/dry/pink. 11:45 Reassessment: Patient appears in no apparent distress at this time. Patient and/or db family updated on plan of care and expected duration. Pain level reassessed. Patient is alert, oriented x 3, equal unlabored respirations, skin warm/dry/pink. Pain: Complains of pain in left eye. Neuro: Level of Consciousness is awake, alert, obeys commands, Oriented to person, place, time, situation. Respiratory: Airway is patent Respiratory effort is even, unlabored, Respiratory pattern is regular, symmetrical. 12:19 Reassessment: Patient appears in no apparent distress at this time. Patient and/or kj2 family updated on plan of care and expected duration. Pain level reassessed. Patient is alert, oriented x 3, equal unlabored respirations, skin warm/dry/pink. 13:20 Reassessment: Patient appears in no apparent distress at this time. Patient and/or kj2 family updated on plan of care and expected duration. Pain level reassessed. Patient is alert, oriented x 3, equal unlabored respirations, skin warm/dry/pink. Vital Signs: 10:40 BP 135 / 71; Pulse 60; Resp 16; Temp 97.3; Pulse Ox 100% on R/A; Weight 72.57 kg; hb Height 5 ft. 8 in. ; Pain 5/10; 12:19 BP 123 / 61; Pulse 66; Resp 20; Pulse Ox 100% on R/A; kj2 13:21 BP 122 / 68; Pulse 70; Resp 20; Temp 98; Pulse Ox 100% on R/A; kj2 10:40 Body Mass Index 24.33 (72.57 kg, 172.72 cm) hb 10:40 Pain Scale: Adult hb Visual Acuity: 11:18 Left Eye Visual acuity 20/50, ; Right Eye Visual acuity 20/40, ; Both Eyes Visual db acuity 20/40; With Lenses; ED Course: 10:31 Patient arrived in ED. im 10:43 Triage completed. hb 10:43 Arm band placed on. hb 10:52 Anoop Bejarano PA is PHCP. cp 10:52 Anoop Conteh MD is Attending Physician. cp 11:09 Gisela Zimmerman, RN is Primary Nurse. db 11:19 Patient has correct armband on for positive identification. Bed in low position. Call db light in reach. Side rails up X 1. Pulse ox on. NIBP on. Pillow given. 11:19 Assist provider with eye exam of Performed by Anoop HARRIS. db 12:14 Provided Education on: CALL LIGHT. kc6 13:02 Raúl Mott MD is Referral Physician. cp 13:29 Patient did not have IV access during this emergency room visit. kc6 Administered Medications: 11:19 Drug: Tetracaine Ophthalmic Drops 0.5 % 1 drops Ophthalmic once {Note: GIVEN TO db PROVIDER.} Route: Ophthalmic; Site: left eye; 12:06 CANCELLED (Physician Discretion): [id number] mg PO once cp 12:16 Drug: HYDROcodone-acetaminophen PO 5 mg-325 mg 1 tabs PO once Route: PO; kj2 13:09 Follow up: Response: No adverse reaction kj2 12:30 Drug: Valtrex PO 1000 mg PO once Route: PO; kj2 13:09 Follow up: Response: No adverse reaction kj2 Medication: 11:46 VIS not applicable for this client. db Outcome: 13:02 Discharge ordered by MD. cp 13:29 Discharged to home ambulatory, with family, kc6 13:29 Condition: stable 13:29 Discharge instructions given to patient, Instructed on discharge instructions, follow up and referral plans. Demonstrated understanding of instructions, follow-up care, medications, Prescriptions given X 2, 13:29 Patient left the ED. kc6 Signatures: Anoop Bejarano PA PA cp Baxter, Heather, RN RN hb Campbell, Kaitlyn, RN RN kc6 Gisela Zimmerman, RN RN Danna Dennison Krystal, RN RN kj2
--- NOTE | 2024-11-13 13:03 | EDPHYS ---
Physician Documentation [facility] Name: Rich Montana Age: 68 yrs Sex: Male : 1955 Arrival Date: 11/13/2024 Time: 10:29 Bed 16 Private MD: ED Physician Anoop Conteh HPI: 11/13 11:05 This 68 yrs old Male presents to ER via Ambulatory with complaints of Eye Swelling. cp 11:05 The patient is experiencing rash of right side of face around right eye, right eye cp discomfort. Onset: The symptoms/episode began/occurred 3 day(s) ago. Duration: the symptoms are continuous. Patient does not utilize any form of vision correction. 11:05 Associated signs and symptoms: Pertinent negatives: dizziness, ear ache, fever. cp 11:05 reports patient recently started new medication, Escitalopram, and is concerned cp rash may be due to new medication. Historical: - Allergies: 10:43 Codeine; hb 10:43 acromycin; hb 10:43 tramadol; hb - PMHx: 10:43 Cirrhosis; GERD; hb - Immunization history:: Adult Immunizations up to date. - Infectious Disease History:: Denies. - Social history:: Smoking status: Patient denies any tobacco usage or history of. ROS: 11:10 Constitutional: Negative for fever, cp 11:10 Eyes: Negative for discharge, redness, vision loss, visual disturbance, 11:10 Skin: Positive for rash, of the left side of face around eye, 11:10 ENT: Negative for drainage from ear(s), ear pain, sore throat, difficulty swallowing, cp difficulty handling secretions, 11:10 Cardiovascular: Negative for chest pain, palpitations, 11:10 Respiratory: Negative for cough, shortness of breath, wheezing, 11:10 Abdomen/GI: Negative for abdominal pain, nausea, vomiting, and diarrhea, 11:10 Neuro: Negative for altered mental status, numbness, syncope, weakness, 11:10 All other systems are negative, Exam: 11:15 Constitutional: The patient appears in no acute distress, alert, awake, non-toxic, well cp developed, well nourished, 11:15 Head/face: Noted is rash, of the left side of forehead and left temporal area with cp extension to left frontal scalp, rash appears grouped, papular, crusted over. 11:15 Eyes: Periorbital structures: swelling, is not appreciated, Pupils: equal, round, and reactive to light and accomodation, Extraocular movements: intact throughout, Conjunctiva: normal, no exudate, no injection, Corneas: abrasion, is not appreciated, foreign body, is not appreciated, a fluorescein strip employed to appreciate the findings, no dendritic lesions noted, Sclera: no appreciated abnormality, 11:15 ENT: Ear canal(s): cerumen impaction, that is severe, occluding the left ear canal, Nose: External nose: end of nose noted papular rash, Nasal mucosa: normal, Mouth: Lips: moist, Oral mucosa: moist, Posterior pharynx: Airway: no evidence of obstruction, patent, swelling, is not appreciated, erythema, is not appreciated, 11:15 Neck: ROM/movement: is normal, is supple, without pain, no range of motions limitations, 11:15 Chest/axilla: Inspection: normal, cp 11:15 Cardiovascular: Rate: normal, 11:15 Respiratory: the patient does not display signs of respiratory distress, Respirations: normal, no use of accessory muscles, no retractions, labored breathing, is not present, Breath sounds: are clear throughout, no decreased breath sounds, Vital Signs: 10:40 BP 135 / 71; Pulse 60; Resp 16; Temp 97.3; Pulse Ox 100% on R/A; Weight 72.57 kg; hb Height 5 ft. 8 in. ; Pain 5/10; 12:19 BP 123 / 61; Pulse 66; Resp 20; Pulse Ox 100% on R/A; kj2 13:21 BP 122 / 68; Pulse 70; Resp 20; Temp 98; Pulse Ox 100% on R/A; kj2 10:40 Body Mass Index 24.33 (72.57 kg, 172.72 cm) hb 10:40 Pain Scale: Adult hb Visual Acuity: 11:18 Left Eye Visual acuity 20/50, ; Right Eye Visual acuity 20/40, ; Both Eyes Visual db acuity 20/40; With Lenses; MDM: 10:52 Medical Screening Exam initiated cp 12:10 ED course: message left on voicemail of DR Mott for eye consultation. cp 13:02 Data reviewed: vital signs, nurses notes, I have discussed the patient's cp presentation/case with the attending Emergency Department Physician; and as a result, I will discharge patient. 13:02 Differential diagnosis: Corneal abrasion of Corneal ulcer of Foreign body in Acute cp iritis of Acute glaucoma in Ultraviolet keratitis in shingles. Management of patient was discussed with the following: Flower Shop Manager: DR Raúl Mott who recommends oral antivirals and patient can f/u outpatient with eye doctor but seek attention any development of ocular symptoms. I considered the following discharge prescriptions or medication management in the emergency department Medications were administered in the Emergency Department. See NOV. 11/13 11:02 Order name: Eye Tray; Complete Time: 11:19 cp 11/13 11: Order name: Fluoresene Opth strip; Complete Time: : cp 11/13 11: Order name: Visual Acuity; Complete Time: : cp Administered Medications: : Drug: Tetracaine Ophthalmic Drops 0.5 % 1 drops Ophthalmic once {Note: GIVEN TO db PROVIDER.} Route: Ophthalmic; Site: left eye; 12:06 CANCELLED (Physician Discretion): [id number] mg PO once cp 12:16 Drug: HYDROcodone-acetaminophen PO 5 mg-325 mg 1 tabs PO once Route: PO; kj2 13:09 Follow up: Response: No adverse reaction kj2 12:30 Drug: Valtrex PO 1000 mg PO once Route: PO; kj2 13:09 Follow up: Response: No adverse reaction kj2 Disposition: 11/14 13:05 Chart complete. cp Disposition Summary: 11/13/24 13:02 Discharge Ordered Notes: Location: Home cp Problem: new cp Symptoms: have improved cp Condition: Stable cp Diagnosis - Zoster without complications cp Followup: cp - With: Raúl Mott MD - When: 1 week - Reason: Recheck today's complaints Discharge Instructions: - Discharge Summary Sheet cp - Neuropathic Pain cp - Shingles cp Forms: - Medication Reconciliation Form cp - Antibiotic Education cp - Prescription Opioid Use cp - Patient Portal Instructions cp - Leadership Thank You Letter cp Prescriptions: - Valtrex 1 gram Oral tablet - take 1 tablet ORAL route every 8 hours for 10 days; 30 tablet; Refills: 0, cp Product Selection Permitted - Neurontin 300 mg Oral Capsule - take 1 capsule ORAL route At bedtime; 20 capsule; Refills: 0, Product Selection cp Permitted Signatures: Anoop Bejarano PA PA cp Baxter, Heather, RN Gisela Ramirez RN RN Cynthia Foster RN RN kj2 Corrections: (The following items were deleted from the chart) 11/13 12:06 12:06 Acetaminophen PO 650 mg PO once ordered. cp cp 11/14 08:18 08:17 Skin: Positive for rash, of the left side of face around eye, cp cp : 08:17 Constitutional: Negative for fever, cp cp 08:18 08:17 Eyes: Negative for discharge, redness, vision loss, visual disturbance, cp cp
[2024-11-13 13:41] VITALS: O2SAT 100
[2024-11-13 13:43] VITALS: BP 122/68; TEMP 98
== END 2024-11-13 13:29 | disposition home or self-care (01) ==
LOC: ER 10:29
DX: B02.9 Zoster without complications (principal)
CPT/HCPCS: 99284